=== PATIENT | male | born 1980 | race Caucasian/White ===

== ENCOUNTER 2023-02-09 08:24 | Inpatient (IN) | payer BC, SELFPAY ==
[2023-02-09] VITALS (16 sets, daily range): BP systolic 116–140; BP diastolic 73–93; PULSE 81–107; RESP 15–20; TEMP 36.8–37.3; O2SAT 88–98; BMI 30.8
--- NOTE | 2023-02-09 08:54 | USCV_ITS ---
JoseJersey Age: 42 Gender: M : 1980 Exam Date: 02/09/2023 09:14 Ordering Phys: Pao Brooks Technologist: [place] [facility] [place]: cramping,pain PROCEDURES: Venous duplex imaging was performed in only the right lower extremity. In addition, the posterior tibial and peroneal trunk were evaluated. On the right side, the common femoral, superficial femoral, profunda femoral, popliteal, posterior tibial, greater saphenous veins and the peroneal trunk were identified and interrogated in the standard fashion. FINDINGS: Normal 2-D Doppler and augmentation and compressibility throughout the lower extremity venous structures. Additional imaging through the proximal calf veins also reveals no thrombus. Limited evaluation of the greater saphenous vein is patent with no thrombus. CONCLUSIONS No DVT right lower extremity. Dr. Tiffany Huddleston DO (Electronically Signed) Final Date: 09 Feb 2023 12:03 S
--- NOTE | 2023-02-09 08:54 | USR_ITS ---
PROCEDURE INFORMATION: Exam: US Duplex Right Lower Extremity Arteries Or Arterial Bypass Grafts Exam date and time: 02/09/2023 9:22 AM Age: 42 years old Clinical indication: Pain; Leg, lower; Right TECHNIQUE: Imaging protocol: Right Real-time duplex scan of the arteries or arterial bypass grafts of the right lower extremity with 2-D dumont scale, color Doppler flow and spectral waveform analysis. Images documented and saved. COMPARISON: US soft tissue/extremity [id number] 05/17/2019 7:34 AM FINDINGS: Right common femoral artery: No visible plaque. Normal waveform. Peak velocity 49 cm/s. Right superficial femoral artery: No visible plaque. Normal waveform. Peak velocity 64 cm/s. Right popliteal artery: Occlusive thrombus throughout the popliteal artery. Right calf/foot arteries: Minimal detectable flow in the posterior tibial and dorsalis pedis arteries with markedly abnormal parvus tardus waveforms. Soft tissues: Unremarkable. Other findings: Right iliac arteries demonstrate normal waveforms and peak velocity of 72 cm/s. No visible plaque. US/[place] [id number] IMPRESSION: 1. Occlusion of the popliteal artery. 2. No sign of hemodynamically significant stenosis above the popliteal artery.
--- NOTE | 2023-02-09 08:55 | ED_ITS ---
HPI - Extremity Problem General: Chief complaint: Extremity Problem,Nontraumatic Stated complaint: right leg pain Time Seen by Provider: 02/09/23 08:28 Source: patient Mode of arrival: ambulatory Limitations: no limitations History of Present Illness: Patient is a nice 42-year-old male who presents to ED today for evaluation of pain in his right lower extremity. Patient states he has a longstanding history of intermittent muscle cramps in that leg normally affecting the dorsum of his foot and calf. He states normally he treats these at home conservatively with stretching. He states two days ago he had a cramp to his right lower leg that was worse in severity than previous cramps. He states he woke up the following day and felt like the right lower leg was sore. Pain seemed to be worse with ambulation. Patient initially thought it could be related to the cramp but states as the day progressed pain seemed to worsen and radiating proximally which concerned him. MD Complaint: extremity pain and other (muscle cramps) Onset (ago): day(s) Pain Consistency: intermittent Location: right and lower extremity Quality: other (cramping) Radiation: proximal Associated symptoms: Reports no associated symptoms; Deny chest pain, fever(s) or rash Context: recent travel Review of Systems Const: Denies: fever(s), chills, body aches, fatigue or malaise Card: Denies: chest pain Resp: Denies: dyspnea GI: Denies: abdominal pain Musc: Reports: extremity pain and muscle cramps; Denies: neck pain, back pain, extremity swelling, joint pain, joint swelling, joint redness, joint warmth, joint stiffness, limited range of motion or muscle weakness Skin/Breast: Denies: rash Neuro: Denies: headache(s), numbness in extremities, weakness in extremities, sensory changes or difficulty walking Physical Exam Const: COMMON NORMALS: no acute distress, average body habitus, patient oriented x3, no limitations, alert and well nourished GENERAL APPEARANCE: cooperative ORIENTATION/CONSCIOUSNESS: Yes awake, Yes oriented to person, Yes oriented to place and Yes oriented to time HENMT: COMMON NORMALS: normocephalic and atraumatic HEAD & SCALP: normal to inspection, normocephalic and atraumatic Resp: COMMON NORMALS: normal respiratory effort and clear to auscultation bilaterally AUSCULTATION: clear to auscultation bilaterally Cardio: COMMON NORMALS: regular rate and regular rhythm RATE: regular rate RHYTHM: regular rhythm GI: COMMON NORMALS: Normal to inspection, nondistended, normoactive bowel sounds present, Soft to palpation, non-tender and no masses PALPATION: Yes Soft to palpation Extremity: COMMON NORMALS: normal to inspection, full ROM, capillary refill n ormal, no joint enlargement, no clubbing, cyanosis or edema, no calf tenderness and no pedal edema GENERAL: Yes normal exam except as noted OTHER: pt maintains full ROM of all joints of R LE; I do not appreciate any obvious swelling anywhere to the extremity; no color/temp changes when compared to contralateral; I can easily feel DP/PT pulses on L LE however have difficulty finding them on the R; Doppler was used and I could faintly spanish moss picker his DP pulse but still couldn't confirm PT; sensation and cap refill normal; negative H tenisha's; no overlying skin changes/lesions appreciated Neuro: COMMON NORMALS: patient oriented x3 SENSORIUM/ORIENTATION: Yes alert, Yes oriented to person, Yes oriented to place and Yes oriented to time Course Consultations: Consultation #1: Dr. Bruce-CTA imaging and he will consult, recommends admit to hospitalist Consultation #2: Dr. Kraus-will accept admission Vital Signs: Vital signs: Vital Signs Temperature 98.2 F 02/09/23 08:31 Pulse Rate 103 H 02/09/23 10:34 Respiratory Rate 18 02/09/23 10:24 Blood Pressure 140/85 02/09/23 10:34 Pulse Oximetry 91 02/09/23 10:34 Oxygen Delivery Me thod Room Air 02/09/23 08:34 MDM - Extremity (Nontraumatic) Medical Decision Making Patient has occlusion of his popliteal artery. The limb is not cool/pale in comparison to the contralateral extremity. He does have some pain at rest. I spoke to hospitalist physician Dr. Bruce who recommended CTA imaging and admit to hospitalist and he will consult. He agreed with heparin bolus and heparin drip for now. I spoke to Dr. Kraus who will come see the patient for hospitalization. Case discussed with Dr. Staples who has followed along and agrees with care plan for patient. After patient was admitted to hospital service I got a call from Dr. Huddleston who was actively reading his CT angio study. She alerted me that patient has bilateral pulmonary emboli with right heart strain. I contacted Dr. Kraus and immediately relayed these results to him. ES Lab Data 02/09/23 09:39 02/09/23 09:39 Radiology Impressions Duplex Scan Lower Extremity Artery 02/09/23 08:54 IMPRESSION: 1. Occlusion of the popliteal artery. 2. No sign of hemodynamically significant stenosis above the popliteal artery. ADDENDUM: 02/09/23 1012 THIS REPORT CONTAINS FINDINGS THAT MAY BE CRITICAL TO PATIENT CARE. The findings were verbally communicated via telephone conference with Dr. Staples for ptJersey Thomas at 10:10 AM CDT on 02/09/2023. The findings were acknowledged and understood. Laboratory Results WBC 9.8 10^3/uL (4.0-10.0) 02/09/23 09:39 RBC 5.66 10^6/uL (4.1-5.3) H 02/09/23 09:39 Hgb 15.8 g/dL (11.7-16.6) 02/09/23 09:39 Hct 46.4 % (42.0-52.0) 02/09/23 09:39 MCV 82.0 fl (80-94) 02/09/23 09:39 MCH 27.9 pg (28.0-34.0) L 02/09/23 09:39 MCHC 34.1 g/dL (30.0-36.0) 02/09/23 09:39 RDW 12.8 % (12.1-15.1) 02/09/23 09:39 Plt Count 156 10^3/cmm (130-400) 02/09/23 09:39 MPV 10.6 fL (7.4-10.4) H 02/09/23 09:39 Neut % (Auto) 78.4 % 02/09/23 09:39 Lymph % (Auto) 13.3 % 02/09/23 09:39 [place] % (Auto) 6.6 % 02/09/23 09:39 Eos % (Auto) 0.8 % 02/09/23 09:39 Baso % (Auto) 0.4 % 02/09/23 09:39 Neut # (Auto) 7.64 10^3/uL (1.8-7.7) 02/09/23 09:39 Lymph # (Auto) 1.3 10^3/uL (0.8-4.8) 02/09/23 09:39 [place] # (Auto) 0.6 10^3/uL (0.2-0.9) 02/09/23 09:39 Eos # (Auto) 0.1 10^3/uL (0.0-0.8) 02/09/23 09:39 Baso # (Auto) 0.0 10^3/uL (0.0-0.1) 02/09/23 09:39 Nucleated RBC % (auto) 0 % 02/09/23 09:39 Nucleated RBCs # 0.0 /100WBC 02/09/23 09:39 ESR 10 mm/hr (0-10) 02/09/23 09:39 PT 13.80 SECONDS (12.1-14.9) 02/09/23 09:39 INR 1.03 (0.8-1.2) 02/09/23 09:39 APTT 25.4 SECONDS (23.9-36.7) 02/09/23 09:39 Sodium 134 mmol/L (136-145) L 02/09/23 09:39 Potassium 4.3 mmol/L (3.5-5.1) 02/09/23 09:39 Chloride 101 mmol/L (98-107) 02/09/23 09:39 Carbon Dioxide 24 mmol/L (22-29) 02/09/23 09:39 Anion Gap 13.3 (5-19) 02/09/23 09:39 BUN 18 mg/dL (6-20) 02/09/23 09:39 Creatinine 0.8 mg/dL (0.7-1.2) 02/09/23 09:39 GFR Calculation 105.0 mL/min (90-130) 02/09/23 09:39 Glucose 337 mg/dL (65-115) H 02/09/23 09:39 Calculated Osmolality 293 mOsm/kg (285-295) 02/09/23 09:39 Calcium 8.6 mg/dL (8.5-10.5) 02/09/23 09:39 Magnesium 2.1 mg/dL (1.7-2.3) 02/09/23 09:39 Total Bilirubin 0.8 mg/dL (0.15-1.2) 02/09/23 09:39 AST 10 U/L (0-40) 02/09/23 09:39 ALT 15 U/L (0-41) 02/09/23 09:39 Alkaline Phosphatase 88 U/L (40-130) 02/09/23 09:39 C-Reactive Protein 38.6 mg/L (0.0-4.9) H 02/09/23 09:39 Total Protein 7.1 g/dL (6.6-8.7) 02/09/23 09:39 Albumin 4.1 g/dL (3.5-5.2) 02/09/23 09:39 Globulin 3.0 g/dL (1.3-4.6) 02/09/23 09:39 Homocysteine 8.96 02/09/23 09:39 TSH 0.93 uIU/mL (0.27-4.20) 02/09/23 09:39 Discharge Plan Discharge Patient Disposition: Admitted As Inpatient Clinical Impression: Occlusion of right popliteal artery Condition: Stable Coding Level of Care Code ED Grounds Keeper for Roque Salmon
[2023-02-09 09:47] LABS: Basophils % 0.4 %; Eosinophils # 0.1 10^3/uL (0.0-0.8); Eosinophils % 0.8 %; Hematocrit 46.4 % (42.0-52.0); Hemoglobin 15.8 g/dL (11.7-16.6); Lymphocytes # 1.3 10^3/uL (0.8-4.8); Lymphocytes % 13.3 %; Mean Corpuscular HGB Conc 34.1 g/dL (30.0-36.0); Mean Corpuscular Hemoglobin 27.9 pg (28.0-34.0); Mean Platelet Volume 10.6 fL (7.4-10.4); Monocytes # 0.6 10^3/uL (0.2-0.9); Monocytes % 6.6 %; Neutrophils # 7.64 10^3/uL (1.8-7.7); Neutrophils % 78.4 %; Nucleated Red Blood Cells % 0 %; Platelet Count 156 10^3/cmm (130-400); Red Blood Count 5.66 10^6/uL (4.1-5.3); Red Cell Distribution Width 12.8 % (12.1-15.1); White Blood Count 9.8 10^3/uL (4.0-10.0)
[2023-02-09 10:04] LABS: Alanine Aminotransferase 15 U/L (0-41); Albumin Level 4.1 g/dL (3.5-5.2); Alkaline Phosphatase 88 U/L (40-130); Anion Gap 13.3 (5-19); Aspartate Amino Transferase 10 U/L (0-40); Blood Urea Nitrogen 18 mg/dL (6-20); Calcium 8.6 mg/dL (8.5-10.5); Carbon Dioxide 24 mmol/L (22-29); Chloride 101 mmol/L (98-107); Glucose 337 mg/dL (65-115); Magnesium 2.1 mg/dL (1.7-2.3); Osmolality Calculated 293 mOsm/kg (285-295); Potassium 4.3 mmol/L (3.5-5.1); Sodium 134 mmol/L (136-145); Total Bilirubin 0.8 mg/dL (0.15-1.2); Total Protein 7.1 g/dL (6.6-8.7)
[2023-02-09 10:22] LABS: INR 1.03 (0.8-1.2); Partial Thromboplastin Time 25.4 SECONDS (23.9-36.7)
[2023-02-09] MEDS: ondansetron 2 mg/ML SDV 2 mL 4 MG IVP ×2 (10:24→23:05)
[2023-02-09] MEDS: morphine 4 mg/mL SDV 1 mL IVP (10:24)
--- NOTE | 2023-02-09 10:28 | CT_ITS ---
WS: [id number] CT ANGIOGRAPHY OF THE ABDOMINAL AORTA WITH RUNOFF TO THE ANKLES HISTORY: R LE popliteal artery occlusion TECHNIQUE: Arterial injection is performed during imaging to evaluate the aorta and runoff vessels to the ankles. MIP and volume rendering imaging has also been performed. All images are reviewed. All C T scans at [facility] use at least one of these dose optimization techniques: automated exposu re control; mA and/or kV adjustment per patient size (includes targeted exams where dose is matched t o clinical indication); or iterative reconstruction. Contrast: Omnipaque 350; 100 mL IV. DLP: 1276.23 mGy.cm COMPARISON: None available. Bilateral pulmonary emboli. Largest embolic burden in the distal RIGHT main pulmonary artery with ext ension into the upper and lower lobes. There is also involvement of the RIGHT middle lobe pulmonary a rtery. Additional extensive thrombus in the LEFT lower lobe arterial system. RIGHT heart strain. RIGH T ventricle and atrium are enlarged. Tricuspid regurgitation into hepatic veins. Normal aorta. No aneurysm. Normal celiac axis. Mild atherosclerotic plaque in the proximal SMA. No oc clusions. RIGHT lower extremity arterial system: RIGHT common iliac artery through the internal and external an d femoral arteries is normal. There is acute thrombus with occlusion of the RIGHT deep profunda femor al artery. SFA well-opacified. There is complete occlusion of the popliteal artery. Very small vessel runoff to the ankle. There is thrombus, continuing throughout the peroneal artery with occlusion. Po sterior tibial artery is very small and may be occluded also. There is a tiny nonenhancing outpouching from the RIGHT popliteal artery extending towards the tibia measuring 8 mm. LEFT lower extremity arterial system: Common iliac artery, internal and external iliac arteries are p atent. SFA and deep profunda are patent. Normal popliteal artery. Three-vessel runoff to the ankle is improved as compared to the RIGHT. Beyond the mid tibia arteries are not opacified adequately. This is due to function of the injection. Normal size liver and spleen. Spleen is top normal at 13.0 cm. No adrenal mass. Normal pancreas and c ommon bile duct. No pancreatic duct dilatation. Focal scar with cortical thinning RIGHT kidney measur es 2.4 x 1.8 cm. This will need to be reevaluated for possible underlying renal cell neoplasm. There is mild increased soft tissue extending into the medullary portion of the kidney. LEFT kidney is nega tive. Very small caliber main RIGHT renal artery. There are 2 small renal arteries. Accessory renal a rtery on the LEFT also. No adenopathy or ascites. No GI tract obstruction. Stomach is well distended. Portal vein is well opa cified. The SMV is not well opacified as this is an arterial injection. No GI tract obstruction. No i schemic changes. No mass. Negative urinary bladder. CT/CT angio abd aorta runof [id number] IMPRESSION: 1. Extensive bilateral pulmonary emboli identified. 2. Moderate RIGHT heart strain. 3. Complete occlusion of the RIGHT popliteal artery. Thrombus or embolic disea se in the RIGHT popliteal artery extends into the peroneal artery. Very poor ru noff to the ankle via 3 vessels. 4. 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 5. Soft tissue occlusion RIGHT deep femoral profunda artery. 6. Very minimal atherosclerotic disease in the proximal SMA with no occlusion. 7. Cortical scar with increased soft tissue RIGHT kidney. Consider evaluation by ultrasound. Follow-up MRI renal mass protocol as patient's condition improv es. Small caliber renal arteries. There are 2 small caliber RIGHT renal arterie s. Notified YUMIKO Weiner at 02/09/2023 12:[address] Nayana robles.
[2023-02-09] MEDS: heparin 5,000 unit/mL INJ 1 mL 4000 UNIT IVP (10:30)
[2023-02-09] MEDS: heparin drip 25,000 UNIT/500 ML PREMIX 23.41 UNIT IV (10:35)
--- NOTE | 2023-02-09 10:40 | USCV_ITS ---
JoseJersey baugh Age: 42 Gender: M : 1980 Exam Date: 02/09/2023 11:05 Ordering Phys: Jt Kraus MD Technologist: CT [place] [facility] [place]ication: arterial thrombus- lower ext. BP: 102 / 86 HR: 99 Rhythm: Sinus Technical Quality: Adequate MEASUREMENTS (Male / Female) Normal Values 2D ECHO LV Diastolic Diameter PLAX 5.3 cm 4.2 - 5.9 / 3.9 - 5.3 cm LV Systolic Diameter PLAX 3.6 cm IVS Diastolic Thickness 0.7 cm 0.6 - 1.0 / 0.6 - 0.9 cm IVS Systolic Thickness 1.1 cm LVPW Diastolic Thickness 0.7 cm 0.6 - 1.0 / 0.6 - 0.9 cm LVPW Systolic Thickness 1.6 cm LVOT Diameter 2.2 cm LV Ejection Fraction 2D Teich 61.5 % LV Ejection Fraction MOD 2C 57.3 % LV Ejection Fraction 2C AL 56.3 % LA Diameter 4.2 cm Aorta at Sinotubular Diameter 2.6 cm IVC Diameter 1.5 cm M-MODE Aortic Annulus Diameter 3.2 cm LA Ao Ratio MM 1.3 MV E Point Septal Separation 1.2 cm DOPPLER AV Peak Velocity 155.0 cm/s LVOT Peak Velocity 108.0 cm/s AV Area Cont Eq vti 2.9 cm squared AV Area Cont Eq pk 2.7 cm squared MV Peak Velocity 80.0 cm/s MV Area PHT 3.9 cm squared Mitral E to A Ratio 0.9 MV E' Velocity 36.0 cm/s Mitral E to MV E' Ratio 6.7 Mitral E to LV E' Lateral Ratio 5.2 Mitral E to LV E' Septal Ratio 9.6 TR Peak Velocity 265.9 cm/s TR Peak Gradient 28.3 mmHg TR Mean Velocity 182.0 cm/s TR Mean Gradient 15.4 mmHg TR Velocity Time Integral 55.5 cm TV Peak E Velocity 71.0 cm/s Right Atrial Pressure 3.0 mmHg Pulmonary Artery Systolic Pressu 31.3 mmHg PV Peak Velocity 61.0 cm/s FINDINGS Left Ventricle Left ventricle is normal in size. LV systolic function is normal with EF 55 to 60%. No regional wall motion abnormalities are seen. Right Ventricle RV is dilated and moderately hypokinetic. Right Atrium Normal in size Left Atrium Normal in size Mitral Valve Structurally normal mitral valve. Trace mitral regurgitation. Aortic Valve Structurally normal aortic valve. No significant stenosis or regurgitation. Tricuspid Valve Mild tricuspid regurgitation. Insufficient TR jet to calculate RVSP Pulmonic Valve Not well visualized Pericardium Normal Aorta Normal in size IVC Appears to be normal CONCLUSIONS LV systolic function is normal with EF of 55 to 60%. RV is dilated and moderately hypokinetic Trace mitral regurgitation Mild tricuspid regurgitation No comparison studies are available José Schneider MD (Electronically Signed) Final Date: 09 Feb 2023 20:53 S
--- NOTE | 2023-02-09 10:46 | ECG_ITS ---
[facility] Test Date: 2023-02-09 Pat Name: Jersey Garcia Department: Room: Gender: Male Mica Inspector: : 1980 Requested By: Jt Land Order Number: [id number] Jesus MD: Sindi Osorio M.D. Measurements Intervals [place] Rate: 94 P: 37 [place]: 153 QRS: 112 QRSD: 91 T: 63 QT: 383 QTc: 481 Interpretive Statements SINUS RHYTHM INCOMPLETE RIGHT BUNDLE BRANCH BLOCK [90+ ms QRS DURATION, TERMINAL R IN V1/V2, 40+ ms S IN I/aVL/V4/V5/V6] No previous ECG available for comparison Electronically Signed On 02-10-2023 7:28:12 CDT by Sindi Osorio M.D. [id number]
[2023-02-09] MEDS: iohexol 350 mg/mL 500 mL Btl (per mL) IV (10:55)
[2023-02-09 11:36] LABS: Erythrocyte Sedimentation Rate 10 mm/hr (0-10)
[2023-02-09 11:38] LABS: C Reactive Protein 38.6 mg/L (0.0-4.9); Homocysteine 8.96; Thyroid Stimulating Hormone 0.93 uIU/mL (0.27-4.20)
--- NOTE | 2023-02-09 12:18 | USCV_ITS ---
Jersey Garcia Age: 42 Gender: M : 1980 Exam Date: 02/09/2023 13:48 Ordering Phys: Jt Kraus MD Technologist: Jaiden Gee [place] [facility] [place]ication: PE PROCEDURES: Venous duplex imaging was performed in only the left lower extremity. The following venous structures were evaluated: common femoral vein, profunda vein, proximal portion of the greater saphenous vein, superficial femoral vein, and the popliteal vein. In addition, the posterior tibial and peroneal trunk were evaluated. Serial compression, augmentation maneuvers, and spectral Doppler flow evaluation were performed. FINDINGS: Normal 2-D Doppler and augmentation and compressibility throughout the lower extremity venous structures. Additional imaging through the proximal calf veins also reveals no thrombus. Limited evaluation of the greater saphenous vein is patent with no thrombus. CONCLUSIONS No DVT left lower extremity. Dr. Tiffany Huddleston DO (Electronically Signed) Final Date: 09 Feb 2023 16:06 S
--- NOTE | 2023-02-09 12:56 | PM.CONSULT ---
Providers/Reason For Consult Consulting Physician/Specialty*: José Schneider MD/ Cardiology Reason for Consult*: Right leg/foot pain Requesting Physician: Pao Brooks Attending Physician: Dr Kraus Primary Care Provider: Sandoval Castillo DO History of Present Illness History of Present Illness Jersey Garcia is a 42 year old male presented to ER with pain in the right lower extremity. He had been having leg cramping for a couple of months but for the last 2 days episodes became worse. This morning it was worst pain mostly with movement and he decided to come to ER. Pulses were not palpable. Patient underwent doppler ultrasound that showed thrombus in the right popliteal artery. CTA confirmed the findings with very minimal runoff. He was started on heparin gtt. Review of Systems General: Reports: 10 or more systems reviewed and unremarkable except in HPI and below Const: Denies: fever(s) or chills Card: Reports: dyspnea on exertion; Denies: chest pain or swelling of feet/ankles Resp: Reports: dyspnea; Denies: productive cough or non-productive cough GI: Reports: nausea; Denies: abdominal pain, vomiting, hematemesis, hematochezia or melena Musc: Reports: extremity pain Medications/Allergies Home Medications Medication Instructions Recorded Confirmed Last Taken Type No Known Home Medications 02/09/23 02/09/23 Unknown History Allergies Allergy/AdvReac Type Severity Reaction Status Date / Time acetaminophen [From Vicodin] Allergy ADR-Itching Verified 02/09/23 11:49 hydrocodone [From Vicodin] Allergy ADR-Itching Verified 02/09/23 11:49 Current Medications Generic Name Dose Route Start Last Admin Trade Name Freq PRN Reason Stop Dose Admin Heparin Sodium/Sodium Chloride 25,000 unit in 500 mls @ 23.405 mls/hr 02/09/23 10:00 02/09/23 10:35 Heparin Drip IV 12 unit/kg/hr .[id number] CHUCKIE 23.41 mls/hr Administration 12 UNIT/KG/HR PFSH Acute PFSH: Medical History Diabetes mellitus 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 Surgical History History of appendectomy History of cholecystectomy Family History Other Hypertension Social History Smoking and tobacco status: current every day smoker smokeless tobacco Smokeless tobacco user: chewing tobacco Alcohol intake: never Vitals/I&O/Wt Last Vital Signs Temp 98.2 F 02/09/23 08:31 Pulse 96 02/09/23 12:00 Resp 18 02/09/23 10:24 BP 122/93 02/09/23 12:00 Pulse Ox 96 02/09/23 12:00 O2 Del Method Nasal Cannula 02/09/23 12:00 O2 Flow Rate 2 02/09/23 12:00 Weight last 48 hrs Weight 215 lb Physical Exam Const: COMMON NORMALS: no acute distress, patient oriented x3 and alert HENMT: HEAD & SCALP: normal to inspection Resp: COMMON NORMALS: normal respiratory effort Cardio: COMMON NORMALS: regular rate, regular rhythm and S1 normal heart sound present RATE: regular rate RHYTHM: regular rhythm HEART SOUNDS: S1 normal heart sound present Extremity: OTHER: Right foot has normal temperature. Pulses not palpable DP or PT Neuro: COMMON NORMALS: patient oriented x3 SENSORIUM/ORIENTATION: Yes alert Data 02/09/23 09:39 02/09/23 09:39 A&P Assessment and plan (1) Critical limb ischemia of right lower extremity: (2) Diabetes mellitus: (3) Pulmonary emboli: (4) Occlusion of right popliteal artery: Plan Patient has presented with critical limb ischemia with worsening leg pain. Now rest pain. Has thrombus noted on imaging in the right popliteal artery. Minimal flow seen below the knee. Continue heparin gtt. We will proceed with peripheral angiogram with possible intervention. Risks and benefits of the procedure have been discussed in detail. ECHO ordered. Has bilateral pulmonary emboli. Continue anticoagulation. Thank you for involving us with care of this patient. We will continue to follow. Please call with questions. Consult Attestations Medical Necessity Statement: Care expected to cross 2 midnights. Coding Level of Care Code Acute Code for [facility] Fwd Diagnoses Critical limb ischemia of right lower extremity I70.221 Diabetes mellitus E11.9 Pulmonary emboli I26.99 Occlusion of right popliteal artery I70.201
--- NOTE | 2023-02-09 13:24 | P.HP_ITS ---
Providers/Chief Complaint Admitting Physician: Jt Kraus MD Primary Care Provider: Sandoval Castillo DO Chief Complaint: right leg pain History of Present Illness Jersey Garcia is a 42 year old male presenting to the emergency department with complaints of some pain in his right lower extremity. He reports over the last 2 days he has been having some cramps in the area, worsening significantly last night with some ankle movement. He reports he has had cramps in his feet before, but nothing like this. He reports no significant calf pain usually with walking. However, last night he did have pain into his calf and his upper leg. He reports he had some nausea with the pain. He has had no chest discomfort. In retrospect, after repeat interview he reports he has a little bit of shortness of breath with exertion the last several days but not at rest, and he goes quickly away. No hemoptysis. No fever, recent COVID. No family history of clotting disorders. In the emergency department a right lower extremity popliteal artery thrombus was noted on ultrasound. Subsequently a CTA was ordered, which demonstrated bilateral pulmonary emboli, with right heart strain. Heparin drip was ordered, cardiology consulted. Review of Systems General: Reports: 10 or more systems reviewed and unremarkable except in HPI and below Const: Denies: fever(s) or chills Card: Reports: dyspnea on exertion; Denies: chest pain or swelling of feet/ankles Resp: Reports: dyspnea; Denies: productive cough or non-productive cough GI: Reports: nausea; Denies: abdominal pain, vomiting, hematemesis, hematochezia or melena Medications/Allergies Home Medications Medication Instructions Recorded Confirmed Last Taken Type No Known Home Medications 02/09/23 02/09/23 Unknown History Allergies Allergy/AdvReac Type Severity Reaction Status Date / Time acetaminophen [From Vicodin] Allergy ADR-Itching Verified 02/09/23 11:49 hydrocodone [From Vicodin] Allergy ADR-Itching Verified 02/09/23 11:49 PFSH Acute PFSH: Medical History (Updated 02/09/23 @ 13:35 by Jt Kraus MD) Diabetes mellitus 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 Surgical History (Updated 02/09/23 @ 13:27 by Jt Kraus MD) History of appendectomy History of cholecystectomy Family History (Updated 02/09/23 @ 13:27 by Jt Kraus MD) Other Hypertension Social History (Updated 02/09/23 @ 13:27 by Jt Kraus MD) Smoking and tobacco status: current every day smoker smokeless tobacco Smokeless tobacco user: chewing tobacco Alcohol intake: never Vitals/I&O/Wt Last Vital Signs Temp 98.2 F 02/09/23 08:31 Pulse 96 02/09/23 12:00 Resp 18 02/09/23 10:24 BP 122/93 02/09/23 12:00 Pulse Ox 96 02/09/23 12:00 O2 Del Method Nasal Cannula 02/09/23 12:00 O2 Flow Rate 2 02/09/23 12:00 Weight last 48 hrs Weight 97.522 kg Physical Exam Narrative: General exam is no apparent distress HEENT: Atraumatic and normocephalic. Pupils equally round. Oropharynx clear. Neck is supple no lymphadenopathy thyromegaly Cardiovascular regular in rhythm without murmur, no S3 or S4 Lungs clear no wheezing or crackles Abdomen soft nontender positive bowel sounds. No obvious organomegaly exams deferred Extremities no cyanosis or clubbing. Right lower extremity with absent dorsalis pedis and posterior tibial pulse. Cap refill approximately 2 seconds. Left is normal. Right side is cooler to the touch. No significant pain currently. Skin no rash Neuro no obvious focal deficits Data 02/09/23 09:39 02/09/23 09:39 Other Labs: PT and PTT are normal LFTs are normal CRP elevated at 39 Sedimentation rate 10 TSH 0.93 CTA of chest demonstrates extensive bilateral pulmonary emboli with moderate right heart strain, complete occlusion of right popliteal artery. Soft tissue occlusion of right deep femoral profunda artery, question scar right kidney. I reviewed this as well. Venous duplex right lower extremity demonstrates no DVT, left ordered Arterial duplex on right demonstrated occlusion of popliteal artery EKG which I reviewed demonstrates sinus rhythm, right axis deviation, incomplete right bundle A&P Assessment and plan (1) Occlusion of right popliteal artery: Unexpected finding in this young male. Extends to the peroneal., Suspicious for right popliteal artery aneurysm, occlusion of deep femoral profunda as well. Cannot completely rule out propagation of embolism to arterial side secondary to bilateral pulmonary emboli with right heart strain. Potential explanation would be enough pressure to open up a PFO. Cardiology consultation Heparin drip, with close measurement of PTTs Thrombotic work-up. See multiple studies ordered Pain control Hydration (2) Pulmonary emboli: Initiate heparin drip Perform venous duplex other side Check urinalysis to make sure no nephropathy/nephritic Oxygen as needed If remains stable over the next several days consider conversion to novel/newer anticoagulant (3) Diabetes mellitus: Initiate sliding scale insulin Consistent carb diet when diet initiated Check hemoglobin A1c Plan Abnormality of kidney, seen on CTA. Check renal ultrasound. Nicotine dependency. Counseled. Full code Heparin is initiated. Note patient has pulmonary emboli Attestations 2 Medical Necessity Statement*: Will need greater than 2 midnight stay for evaluation and treatment of bilateral pulmonary emboli with right heart strain, arterial thrombus Critical Care Time: The high probability of a clinically significant, sudden or life threatening deterioration of the patient's [vascular, pulmonary] system(s) required my full and direct attention, intervention and personal management. The critical care time is as shown. This time is in addition to time spent performing any reported procedures but includes the following: [x] Data and vital sign review and interpretation [x] Patient assessment, examination and intervention [x] Documentation [x] Medication orders and management Critical Care Time (min): 54 Coding Level of Care Code Critical Care >/= 30 minutes Critical care time (in minutes): 54 The high probability of a clinically significant, sudden or life threatening deterioration, as referenced in this documentation, required my full and direct attention, intervention and personal management. The critical care time shown is in addition to time spent performing any reported separately billable procedures and includes the following: [x] Data and vital sign review and interpretation [x ] Patient assessment, examination and intervention [x] Medication orders and management [x] Patient/Family updates as able [x] Care Coordination and Documen tation. Diagnoses Occlusion of right popliteal artery I70.201 Pulmonary emboli I26.99 Diabetes mellitus E11.9 Time Spent (min) 54
--- NOTE | 2023-02-09 13:33 | US_ITS ---
WS: [id number] RENAL ULTRASOUND HISTORY: abnormality on CTA COMPARISON: None available. TECHNIQUE: 2-D and color Doppler imaging of the kidney submitted. Right kidney: 11.5 cm x 5.2 cm x 5.8 cm. Cortex: 1.8 cm Normal echogenicity with no hydronephrosis or mass. Left kidney: 12.3 cm x 4.5 cm x 5.2 cm. Cortex: 1.8 cm Normal echogenicity with no hydronephrosis or mass. Aorta: Normal. Urinary Bladder: Normal distention. US/US renal BI* [id number] IMPRESSION: Normal renal ultrasound. Recently described abnormality in the RIGHT kidney by CT is not evident by ultr asound. Probably due to its small size. Recommend MRI evaluation on a nonemerge nt basis with and without contrast.
[2023-02-09 14:12] LABS: Estmated Average Glucose 249; Hemoglobin A1C 10.3 % (4.0-6.0)
--- NOTE | 2023-02-09 15:09 | XACV_ITS ---
Exam Room: [facility] Ht: 178 cm Wt: 98 kg BSA: 2.22 m2 Gender: Male : 1980 Exam Priority: Routine Procedure(s): Procedure Description: Diagnostic procedure Procedure Description: Peripheral Cath Diagnostic Procedure Procedure Description: Abdominal aortic angiography Procedure Description: Lower extremities' angiography Procedure Description: Peripheral vascular Intervention Procedure Description: PV Balloon Procedure Description: Miscellaneous Procedure Description: ACT Procedure Description: PV Thrombectomy Abdominal Diagnostic Findings Distal abdominal aorta: Patent. Lower Extremity Diagnostic Findings INDICATION: 42-year-old man has presented with critical limb ischemia with worsening leg pain for the last 2 weeks and severe pain for 2 days. Now pain with any movement. Has thrombus noted on imaging in the right popliteal artery. Minimal flow seen below the knee.. Right lower extremity findings: Right common iliac artery is patent. Right external iliac artery is patent. Right internal iliac artery is patent. Right common femoral artery is patent. Right profunda artery is thrombus in the midsegment. Right SFA is patent. Right popliteal artery has large thrombus burden. Weak collateral blood flow seen below the knee.. Left lower extremity findings: Left common iliac artery is patent. Left external iliac artery is patent. Left internal iliac artery is patent. Left common femoral artery is patent. Left profunda artery is proximally patent. Runoff was not performed for left lower extremity. Right Mid-longitudinal Popliteal Artery: Moderate 70% stenosis. Lower Extremity Interventional Findings Procedure detail: We obtained access in left common femoral artery. Peripheral angiogram with runoff showed thrombotic occlusion of right popliteal artery. We switched short sheath from left common femoral artery to 45 cm long sheath and was put in the right external iliac artery.We performed Mechanical thrombectomy with penumbra. Multiple runs were performed. Small quantity of thrombus was extracted out.This established limited flow into distal popliteal artery/below the knee vessel and revealed high thrombus burden in all vessels. Balloon angioplasty of popliteal artery using 5.0 x 40 mm balloon and 6.0 x 60 mm balloon also failed to establish inline brisk flow. This was likely secondary to poor outflow. After several attempts, we decided to treat patient with heparin and transfer for vascular surgery evaluation and treatment.. Right Mid-longitudinal Popliteal Artery: 100% stenosis treated with AB ARMADA 35 OTW [id number] and AB ARMADA 35 OTW [id number]. Conclusions Thrombotic occlusion of right popliteal artery s/p mechanical thrombectomy with penumbra device and balloon angioplasty. Very minimal flow established secondary to poor outflow and heavy thrombus burden throughout below the knee vessels. Collateral blood flow is weak however has been established providing minimal blood flow below the knee. Decision made to transfer patient to tertiary care center for vascular surgery evaluation. Sensation and movement is intact. No resting pain however movement induces significant lower extremity pain.. Right popliteal artery was treated with angioplasty and mechanical thrombectomy. Right Popliteal Artery was treated with two Balloon. Recommendations Continue anticoagulation with heparin gtt. Transfer to [facility] for vascular surgery evaluation. Pressures Phase:Rest AO : 156 / 83 ( 108 ) @ 5:45:00 PM 123 / 76 ( 92 ) @ 6:20:00 PM 138 / 87 ( 106 ) @ 6:25:00 PM 137 / 87 ( 107 ) @ 6:37:00 PM 136 / 79 ( 100 ) @ 6:40:00 PM Hemodynamic Data Phase:Rest AO : 156.0 / 83.0 ( 108.0 ) @ 5:45:00 PM 123.0 / 76.0 ( 92.0 ) @ 6:20:00 PM 138.0 / 87.0 ( 106.0 ) @ 6:25:00 PM 137.0 / 87.0 ( 107.0 ) @ 6:37:00 PM 136.0 / 79.0 ( 100.0 ) @ 6:40:00 PM Procedural Details Procedure Consent Obtained. Admit Source: Emergency department. Pre-Procedure Time Out. Identified patient by full name and date of as verbalized by the patient/guarantor. Does the consent match the physician's order: Yes. Accurate & Complete Informed Consent: Yes. Inpatient/Outpatient History & Physical on Chart: Yes. If H&P is completed, is and addenduem needed: Yes; If yes, is the addendum complete: Yes. Visualize and Verify Site with Patient/Guarantor: N/A. Relevant Radiology Images available: N/A. Pre-op teaching completed and patient verbalized understanding. The risks, benefits, and alternatives of sedation and/or procedure were discussed by physician. The patient agrees to continue. Procedure started. Veneer Taper Indications: Critical Limb Ischemia. Correct patient, site and procedure confirmed by cath team. Current diagnosis: Critical Limb Ischemia. PERRLA. Strong, equal hand cribbing setter bilaterally. Lungs clear x 5 lobes. IV Site on Arrival: 20 gauge in the right anticubital. IV Fluids: 0.9% NaCl at KVO. 0 mL infused prior to dental laboratory technician. Oxygen started at 2liters/min via nasal canula. Pre Procedural Pulses: right posterior tibial was Absent. Pre Procedural Pulses: right dorsalis pedis was Absent. right groin was prepped with chloroprep then draped in the usual sterile fashion. left groin was prepped with chloroprep then draped in the usual sterile fashion. Baseline sample Acquired. HR: 104 BPM. Physician notified. Physician arrived. Physician scrubbed in. Time out performed with cath team. Lidocaine 1% infiltrated to the left groin. Arterial access obtained with micropuncture set. ACT drawn. Results 130 seconds. Therapeutic limits - pre-heparin administration 90-150 seconds and monitoring heparin during a vascular procedure >250 seconds. A 5Fr UF catheter in over wire. Abdominal aortogram performed in GUERRA @ 10 mL/sec for a total of 30 mL. Glidewire inserted. 6Fr short sheath exchanged for 7 Fr 45 cm Flexor sheath. Seeker inserted over the glidewire. Seeker catheter out over wire. Lightning 7 aspiration catheter inserted. Glidewire out. Mechanical thrombectomy performed of R popliteal. Glidewire inserted. Lightning 7 catheter removed over Glidewire. Right superficial femoral selected and arteriogram with runoff performed @ 10 mL/sec for a total of 30 mL. Lightning 7 catheter in over Glidewire. Glidewire removed. Mechanical thrombectomy performed of R popliteal. Glidewire inserted. Lightning 7 catheter removed over Glidewire. Right superficial femoral selected and arteriogram performed. Balloon inserted over the wire to the popliteal. Inflation number : 1 A AB ARMADA 35 OTW [id number] was prepped and advanced across the Popliteal, Right , then inflated to 8 MALKA for 1:00 seconds. Inflation number: 2 The AB ARMADA 35 OTW [id number] was reinflated across the Popliteal, Right, to 4 MALKA for 0:30 seconds. Balloon out over wire. Post intervention angiography performed to check result. Lightning 7 catheter inserted over Glidewire. Glidewire removed. Mechanical thrombectomy performed to R Popliteal. Glidewire inserted. Lightning 7 catheter removed over wire. Balloon inserted over the wire to the popliteal. Inflation number: 3 The AB ARMADA 35 OTW [id number] was reinflated across the Popliteal, Right, to 8 MALKA for 0:30 seconds. ACT drawn. Results high. No heparin given. Inflation number: 4 The AB ARMADA 35 OTW [id number] was reinflated across the Popliteal, Right, to 8 MALKA for 0:20 seconds. Inflation number: 5 The AB ARMADA 35 OTW [id number] was reinflated across the Popliteal, Right, to 4 MALKA for 0:21 seconds. Balloon out over wire. Post intervention angiography performed to check result. Lightning 7 aspiration catheter in over Glidewire. Glidewire removed. Mechanical thrombectomy performed of R popliteal. Glidewire inserted. Lightning 7 catheter removed over Glidewire. Balloon inserted over the wire to the popliteal. Inflation number : 6 A AB ARMADA 35 OTW [id number] was prepped and advanced across the Popliteal, Right , then inflated to 6 MALKA for 0:25 seconds. Inflation number: 7 The AB ARMADA 35 OTW [id number] was reinflated across the Popliteal, Right, to 6 MALKA for 0:15 seconds. Inflation number: 8 The AB ARMADA 35 OTW [id number] was reinflated across the Popliteal, Right, to 4 MALKA for 0:15 seconds. Balloon and wire out. Post intervention angiography performed to check result. 7Fr 45 cm Flexor Sheath exchanged for 7 Fr short sheath. A Left femoral angiogram was performed to determine safe placement of closure device. ACT drawn. Results 182 seconds. Therapeutic limits - pre-heparin administration 90-150 seconds and monitoring heparin during a vascular procedure >250 seconds. Sheath upsized to a 7 Fr. A Suture was successful obtaining hemostatsis at the Left Femoral artery insertion site. Sheath(s) sutured into position with 2-0 silk and sterile 4x4's and Op-site applied over the site. No oozing or signs and symptoms of hematoma noted. Post Procedure: Pulses reassessed and unchanged. PERRLA. Strong, equal hand cribbing setter bilaterally. No VTE prophylaxis required. ACT drawn. Results 213 seconds. Therapeutic limits - pre-heparin administration 90-150 seconds and monitoring heparin during a vascular procedure >250 seconds. Total IV fluids: 100 mL. Post-op diagnosis: Totally Occluded Popliteal Artery. Complications: none. Estimated blood loss 350mL. Responsiveness - Normal response to verbal stimuli; alert and oriented, PERRLA. Airway - Unaffected, no intervention required; spontaneous ventilation. Circulation: W/N/L, pulses unchanged. Nausea/Vomiting: No. Procedure completed. Patient transferred by bed to ICU. Vital chart was stopped. Procedure started. Access Site Site: Left Femoral artery Sheath Size: 6 Fr Hemostasis Method: Suture Hemostasis Success: Successful Procedure Medications Start: 4:44 PM Stop: 4:44 PM Medication: Heparin Amount: 4000 units Route: I.V. Start: 4:35 PM Stop: 4:35 PM Medication: Versed Amount: 1 mg Route: I.V. Start: 4:35 PM Stop: 4:35 PM Medication: Fentanyl Amount: 50 mcg Route: I.V. Start: 4:54 PM Stop: 4:54 PM Medication: Heparin Amount: 1000 units Route: I.V. Start: 5:03 PM Stop: 5:03 PM Medication: Fentanyl Amount: 25 mcg Route: I.V. Start: 5:03 PM Stop: 5:03 PM Medication: Versed Amount: 1 mg Route: I.V. Start: 5:10 PM Stop: 5:10 PM Medication: Heparin Amount: 1000 units Route: I.V. Start: 5:54 PM Stop: 5:54 PM Medication: Heparin Amount: 3000 units Route: I.V. I, the attending physician, have reviewed and verified all procedure medications. Yes, all medications given per verbal order History/Risk Factors Hypertension: No Dyslipidemia: No Peripheral Arterial Disease (PAD): No Myocardial Infarction (NH): No Obesity: No Renal Disease: No Tobacco Use: Current/Recent(w/in 1 year) Prior Interventions PCI: No CABG: No Valve Surgery: No Report Signatures Finalized by José Schneider MD on 02/12/2023 10:31 PM
[2023-02-09 16:17] LABS: Bilirubin Urine Neg (Negative); Blood Urine Neg (Negative); Glucose Urine UA 4+ (Normal); Ketones Urine 2+ (Negative); Nitrate Urine Negative (Negative); Protein Urine Neg (Negative); Urine Appearance Clear (CLEAR); Urine Color Yellow (Yellow); pH Urine 5 (5-7)
[2023-02-09 16:18] LABS: Leukocyte Esterase Urine Negative (Negative); Urobilinogen Urine Neg (Negative)
[2023-02-09 16:19] LABS: Add Urine Culture? No; Bacteria Urine TRACE /hpf; Mucus Urine TRACE /hpf; RBC Urine 0-4 /hpf (0-2); Squamous Epithelial Cell Urine 0-4 /hpf (0-5); WBC Urine 0-4 /hpf (0-5)
--- NOTE | 2023-02-09 16:30 | W.PM.OPSUD ---
Surgery/Procedure H&P Update DATE OF PROCEDURE: February 09, 2023 DATE H&P PERFORMED: 02/09/23 H&P UPDATE INFORMATION: I have reviewed H&P completed within last 30 days, I have examined patient prior to procedure and No changes to prior documentation PREOP DIAGNOSIS: Critical limb ischemia PRIMARY INDICATION FOR PROCEDURE: Critical limb ischemia PLANNED PROCEDURE: Peripheral angiogram with possible intervention PATIENT REASSESSED PRIOR TO SEDATION, WITH NO CHANGE NOTED: Yes PHYSICAL EXAM: alert, oriented x 3, clear to auscultation bilaterally and regular rate & rhythm AIRWAY EVAL/ANESTHESIA PLAN: normal airway, ASA III, Local Anesthesia, Risks, benefits & alternatives of sedation and/or procedure discussed and Patient agrees to continue as planned
[2023-02-09] MEDS: sodium chloride 0.9% 1,000 ML 100 ML IV (18:38)
[2023-02-09] MEDS: insulin lispro 100 unit/1 mL SUBCUT ×2 (18:45→20:18)
[2023-02-09 19:06] LABS: Glucose Point of Care 227 mg/dL (70-110)
--- NOTE | 2023-02-09 19:07 | PC.NURSE ---
Patient arrived to unit via bed, VSS with intermittent low o2 levels then placed on supplemental oxygen. Left fem site dry, clean and intact with pulse and pressure bag in place. Patient returned with Hep gtt that was shown titrated at 23ml/hr and restarted with new PTT drawn. Patient resting comfortably and educated with no movement and strict bed rest with left leg straight and again educated to keep in place. Faint pulse palpated to right foot and strong pulse to left foot. No needs at this time, room clean and clutter free with call light in place and patient educated environmental protection specialist light and tv controls.
[2023-02-09 19:13] LABS: Partial Thromboplastin Time 194.1 SECONDS (23.9-36.7)
[2023-02-09] MEDS: morphine 4 mg/mL SDV 1 mL 2 MG IVP (19:59)
[2023-02-09 20:14] LABS: Glucose Point of Care 212 mg/dL (70-110)
--- NOTE | 2023-02-09 20:15 | PC.NURSE ---
Physician Communication Sheath remaining in patient's left femoral artery. No doctor's order to keep in place nor remove. Dr. Schneider contacted; order received to leave sheath in place. Dressing dry and intact, no drainage or hematoma noted.
--- NOTE | 2023-02-09 20:29 | PM.MISC ---
Miscellaneous Note Purpose of Documentation: Brief procedure note Note: Procedure: Peripheral angiogram/ Mechanical Thrombectomy/Balloon angioplasty of distal SFA/popliteal Arteries. INDICATION: Critical limb ischemia. Patient having on and off Right lower extremity pain for several weeks however worsened in the last 2 days.Initially was only with exertion. Now happening at rest. Right lower extremity doppler and CTA show thrombosis of the right popliteal artery with minimal flow below the knee. Also has bilateral pulmonary embolism. Procedure detail:We obtained access in left common femoral artery. Peripheral angiogram with runoff showed thrombotic occlusion of right popliteal artery.Above the knee vessels were Patent. Right profunda artery also has thrombotic occlusion in mid segment.Minimal collateral blood supply was noted supplying blood below the knee. We performed Mechanical thrombectomy with penumbra. Multiple runs were performed. Small quantity of thrombus was extracted out.This established limited flow into distal popliteal artery/below the knee vessel and revealed high thrombus burden in all vessels. Balloon angioplasty of popliteal artery also referred to establish inline brisk flow. This was likely secondary to poor outflow. PLAN: Continue heparin. Will recommend transfer to tertiary care center for vascular surgery evaluation. No vascular surgery back up available. Significant discomfort with movement of the leg. Transfer to ICU. Keep the sheath in place.
[2023-02-09 22:33] LABS: Partial Thromboplastin Time 25.1 SECONDS (23.9-36.7)
--- NOTE | 2023-02-09 22:55 | PC.NURSE ---
Heparin Drip Around 1918, Patient's ptt came back critical at 194.2. Dr. Reddy contacted; order received to hold heparin drip for 3 hours and recheck ptt. Heparin drip stopped. At 2214, patient's ptt resulted at 25.1. Dr. Reddy on unit; order received to restart heparin drip at previous rate without delivering a bolus. See MAR for medication administration.
--- NOTE | 2023-02-09 23:29 | PC.NURSE ---
Addendum entered by Ava Barker RN 02/09/23 23:32: All patient belongings with patient at time of transfer Original Note: Transfer Patient accepted at [facility] in [place], [place], room CICU-8. Air evac flight accepted. Update on transfer status provided to patient and patient's . Oj De Guzman RN at [facility] received patient report at 2256 and patient transferred to flight crew care at 2326. Patient's and receiving nurse aware of expected time of arrival.
--- NOTE | 2023-02-10 08:49 | P.TS_ITS ---
Transfer Summary Providers Date of Admission: 02/09/23 16:01 Date of Discharge/Transfer: 02/10/23 Attending Provider at Admission: Jt Kraus MD Attending Provider at Transfer: Jt Kraus MD Primary Care Provider: Sandoval Castillo DO Transfer Plans: Anticipated date of transfer: 02/10/23 . Diagnoses at Discharge Discharge Diagnosis (1) Critical limb ischemia of right lower extremity: Status: Acute (2) Diabetes mellitus: Status: Acute (3) Pulmonary emboli: Status: Acute (4) Occlusion of right popliteal artery: Status: Acute Reason for Visit Reason for Visit right leg pain Hospital Course Hospital Course Jersey is a 42-year-old white male who presented to the emergency department complaining of right leg pain. He was found to have an ischemic limb, with clot in his popliteal artery. On evaluation of this with CTA, following ultrasound he was found to have bilateral pulmonary emboli with right heart strain. Echocardiogram confirmed some right heart dysfunction. Ejection fraction was intact. Cardiology evaluated patient, and took him for thrombectomy. Clot was more extensive, then predicted on CTA. Despite intervention, there was still high thrombus burden in all vessels and recommendation was made to transfer to a tertiary care hospital. Transfer to [facility], was made. Multiple clotting studies were ordered prior to the patient transferring, to work-up potential thrombotic disorder. CTA concern for renal abnormality was present as well right kidney. Renal ultrasound was not able to visualize this. Could consider revisualization as an outpatient with MRI dedicated study. Physical Exam Narrative: See exam done just hours previously earlier in the day TS Data Studies Completed and Pending Pending at discharge Category Date Time Status [employer] request for service Stat Exams 02/09/23 15:09 Ordered MARIANN Screen w/ Reflex Routine Lab 02/09/23 09:39 Received Anti-Cariolipin IgA AB Routine Lab 02/09/23 09:39 Received Antithrombin III Activity Routine Lab 02/09/23 14:23 Received Beta 2 Glycoprotein I IGA AB Routine Lab 02/09/23 09:39 Received Lupus Inhibitor Panel Anticoag Routine Lab 02/09/23 09:39 Received PROTEIN C, ACTIVITY Routine Lab 02/09/23 14:23 Received PROTEIN S, ACTIVITY Routine Lab 02/09/23 14:23 Received Labs from last 24 hours 02/09/23 02/09/23 02/09/23 22:08 20:09 18:43 WBC RBC Hgb Hct MCV MCH MCHC RDW Plt Count MPV Neut % (Auto) Lymph % (Auto) [facility] [place] % (Auto) Eos % (Auto) Baso % (Auto) Neut # (Auto) Lymph # (Auto) [facility] # (Auto) Eos # (Auto) Baso # (Auto) Nucleated RBC % (auto) Nucleated RBCs # ESR PT INR APTT 25.1 D Lupus Anticoagulant LA PTT Screen DRVVT Screen Seconds Prot C Funct Activity Protein S Activity Antithrombin III Activ Sodium Potassium Chloride Carbon Dioxide Anion Gap BUN Creatinine GFR Calculation Glucose POC Glucose 212 H 227 H Estimat Average Glucose Hemoglobin A1c Calculated Osmolality Calcium Magnesium Total Bilirubin AST ALT Alkaline Phosphatase C-Reactive Protein Total Protein Albumin Globulin Homocysteine TSH Urine Color Urine Appearance Urine pH Ur Specific [place] Urine Protein Urine Glucose (UA) Urine Ketones Urine Blood Urine Nitrate Urine Bilirubin Urine Urobilinogen Ur Leukocyte Esterase Urine RBC Urine WBC Ur Squamous Epith Cells Amorphous Sediment Urine Bacteria Urine Mucus MARIANN Screen Beta-2 GPI IgA Ab Anti-Cardiolip IgG,A,M 02/09/23 02/09/23 02/09/23 18:26 15:25 14:23 WBC RBC Hgb Hct MCV MCH MCHC RDW Plt Count MPV Neut % (Auto) Lymph % (Auto) [facility] % (Auto) Eos % (Auto) Baso % (Auto) Neut # (Auto) Lymph # (Auto) [facility] # (Auto) Eos # (Auto) Baso # (Auto) Nucleated RBC % (auto) Nucleated RBCs # ESR PT INR APTT 194.1 H* D Lupus Anticoagulant LA PTT Screen DRVVT Screen Seconds Prot C Funct Activity Protein S Activity Pending Antithrombin III Activ Sodium Potassium Chloride Carbon Dioxide Anion Gap BUN Creatinine GFR Calculation Glucose POC Glucose Estimat Average Glucose Hemoglobin A1c Calculated Osmolality Calcium Magnesium Total Bilirubin AST ALT Alkaline Phosphatase C-Reactive Protein Total Protein Albumin Globulin Homocysteine TSH Urine Color Yellow Urine Appearance Clear Urine pH 5 Ur Specific [place] 1.020 Urine Protein Neg Urine Glucose (UA) 4+ H Urine Ketones 2+ H Urine Blood Neg Urine Nitrate Negative Urine Bilirubin Neg Urine Urobilinogen Neg Ur Leukocyte Esterase Negative Urine RBC 0-4 H Urine WBC 0-4 H Ur Squamous Epith Cells 0-4 H Amorphous Sediment Not Reportable Urine Bacteria Trace Urine Mucus Trace MARIANN Screen Beta-2 GPI IgA Ab Anti-Cardiolip IgG,A,M 02/09/23 02/09/23 02/09/23 14:23 14:23 09:39 WBC RBC Hgb Hct MCV MCH MCHC RDW Plt Count MPV Neut % (Auto) Lymph % (Auto) [facility] % (Auto) Eos % (Auto) Baso % (Auto) Neut # (Auto) Lymph # (Auto) [facility] # (Auto) Eos # (Auto) Baso # (Auto) Nucleated RBC % (auto) Nucleated RBCs # ESR PT INR APTT Lupus Anticoagulant LA PTT Screen DRVVT Screen Seconds Prot C Funct Activity Pending Protein S Activity Antithrombin III Activ Pending Sodium Potassium Chloride Carbon Dioxide Anion Gap BUN Creatinine GFR Calculation Glucose POC Glucose Estimat Average Glucose 249 Hemoglobin A1c 10.3 H Calculated Osmolality Calcium Magnesium Total Bilirubin AST ALT Alkaline Phosphatase C-Reactive Protein Total Protein Albumin Globulin Homocysteine TSH Urine Color Urine Appearance Urine pH Ur Specific [place] Urine Protein Urine Glucose (UA) Urine Ketones Urine Blood Urine Nitrate Urine Bilirubin Urine Urobilinogen Ur Leukocyte Esterase Urine RBC Urine WBC Ur Squamous Epith Cells Amorphous Sediment Urine Bacteria Urine Mucus MARIANN Screen Beta-2 GPI IgA Ab Anti-Cardiolip IgG,A,M 02/09/23 02/09/23 02/09/23 09:39 09:39 09:39 WBC RBC Hgb Hct MCV MCH MCHC RDW Plt Count MPV Neut % (Auto) Lymph % (Auto) [facility] % (Auto) Eos % (Auto) Baso % (Auto) Neut # (Auto) Lymph # (Auto) [facility] # (Auto) Eos # (Auto) Baso # (Auto) Nucleated RBC % (auto) Nucleated RBCs # ESR 10 PT INR APTT Lupus Anticoagulant LA PTT Screen DRVVT Screen Seconds Prot C Funct Activity Protein S Activity Antithrombin III Activ Sodium Potassium Chloride Carbon Dioxide Anion Gap BUN Creatinine GFR Calculation Glucose POC Glucose Estimat Average Glucose Hemoglobin A1c Calculated Osmolality Calcium Magnesium Total Bilirubin AST ALT Alkaline Phosphatase C-Reactive Protein 38.6 H Total Protein Albumin Globulin Homocysteine 8.96 TSH 0.93 Urine Color Urine Appearance Urine pH Ur Specific [place] Urine Protein Urine Glucose (UA) Urine Ketones Urine Blood Urine Nitrate Urine Bilirubin Urine Urobilinogen Ur Leukocyte Esterase Urine RBC Urine WBC Ur Squamous Epith Cells Amorphous Sediment Urine Bacteria Urine Mucus MARIANN Screen Beta-2 GPI IgA Ab Anti-Cardiolip IgG,A,M Pending 02/09/23 02/09/23 02/09/23 09:39 09:39 09:39 WBC RBC Hgb Hct MCV MCH MCHC RDW Plt Count MPV Neut % (Auto) Lymph % (Auto) [facility] % (Auto) Eos % (Auto) Baso % (Auto) Neut # (Auto) Lymph # (Auto) [facility] # (Auto) Eos # (Auto) Baso # (Auto) Nucleated RBC % (auto) Nucleated RBCs # ESR PT 13.80 INR 1.03 APTT 25.4 Lupus Anticoagulant Pending LA PTT Screen Pending DRVVT Screen Seconds Pending Prot C Funct Activity Protein S Activity Antithrombin III Activ Sodium Potassium Chloride Carbon Dioxide Anion Gap BUN Creatinine GFR Calculation Glucose POC Glucose Estimat Average Glucose Hemoglobin A1c Calculated Osmolality Calcium Magnesium Total Bilirubin AST ALT Alkaline Phosphatase C-Reactive Protein Total Protein Albumin Globulin Homocysteine TSH Urine Color Urine Appearance Urine pH Ur Specific [place] Urine Protein Urine Glucose (UA) Urine Ketones Urine Blood Urine Nitrate Urine Bilirubin Urine Urobilinogen Ur Leukocyte Esterase Urine RBC Urine WBC Ur Squamous Epith Cells Amorphous Sediment Urine Bacteria Urine Mucus MARIANN Screen Pending Beta-2 GPI IgA Ab Pending Anti-Cardiolip IgG,A,M 02/09/23 02/09/23 09:39 09:39 WBC 9.8 RBC 5.66 H Hgb 15.8 Hct 46.4 MCV 82.0 MCH 27.9 L MCHC 34.1 RDW 12.8 Plt Count 156 MPV 10.6 H Neut % (Auto) 78.4 Lymph % (Auto) 13.3 [facility] % (Auto) 6.6 Eos % (Auto) 0.8 Baso % (Auto) 0.4 Neut # (Auto) 7.64 Lymph # (Auto) 1.3 [facility] # (Auto) 0.6 Eos # (Auto) 0.1 Baso # (Auto) 0.0 Nucleated RBC % (auto) 0 Nucleated RBCs # 0.0 ESR PT INR APTT Lupus Anticoagulant LA PTT Screen DRVVT Screen Seconds Prot C Funct Activity Protein S Activity Antithrombin III Activ Sodium 134 L Potassium 4.3 Chloride 101 Carbon Dioxide 24 Anion Gap 13.3 BUN 18 Creatinine 0.8 GFR Calculation 105.0 Glucose 337 H POC Glucose Estimat Average Glucose Hemoglobin A1c Calculated Osmolality 293 Calcium 8.6 Magnesium 2.1 Total Bilirubin 0.8 AST 10 ALT 15 Alkaline Phosphatase 88 C-Reactive Protein Total Protein 7.1 Albumin 4.1 Globulin 3.0 Homocysteine TSH Urine Color Urine Appearance Urine pH Ur Specific [place] Urine Protein Urine Glucose (UA) Urine Ketones Urine Blood Urine Nitrate Urine Bilirubin Urine Urobilinogen Ur Leukocyte Esterase Urine RBC Urine WBC Ur Squamous Epith Cells Amorphous Sediment Urine Bacteria Urine Mucus MARIANN Screen Beta-2 GPI IgA Ab Anti-Cardiolip IgG,A,M Completed Studies During Hospitalization Category Date Time Status CT angio abd aorta runof [id number] Stat Cat Scan 02/09/23 10:28 [place] [id number] Stat Ultrasound 02/09/23 12:18 Completed CV. echo complete* [id number] Routine Ultrasound 02/09/23 10:40 Completed US arterial duplex lower extremity RT [CV arterial Ultrasound 02/09/23 08:54 [place] [id number]] Stat US renal BI* [id number] Routine Ultrasound 02/09/23 13:33 Completed US venous duplex lower extremity RT [CV venous duplex Ultrasound 02/09/23 08:54 [place] [id number]] Stat Laboratory Last Values WBC 9.8 10^3/uL (4.0-10.0) 02/09/23 09:39 RBC 5.66 10^6/uL (4.1-5.3) H 02/09/23 09:39 Hgb 15.8 g/dL (11.7-16.6) 02/09/23 09:39 Hct 46.4 % (42.0-52.0) 02/09/23 09:39 MCV 82.0 fl (80-94) 02/09/23 09:39 MCH 27.9 pg (28.0-34.0) L 02/09/23 09:39 MCHC 34.1 g/dL (30.0-36.0) 02/09/23 09:39 RDW 12.8 % (12.1-15.1) 02/09/23 09:39 Plt Count 156 10^3/cmm (130-400) 02/09/23 09:39 MPV 10.6 fL (7.4-10.4) H 02/09/23 09:39 Neut % (Auto) 78.4 % 02/09/23 09:39 Lymph % (Auto) 13.3 % 02/09/23 09:39 [facility] [place] [facility] % (Auto) 6.6 % 02/09/23 09:39 Eos % (Auto) 0.8 % 02/09/23 09:39 Baso % (Auto) 0.4 % 02/09/23 09:39 Neut # (Auto) 7.64 10^3/uL (1.8-7.7) 02/09/23 09:39 Lymph # (Auto) 1.3 10^3/uL (0.8-4.8) 02/09/23 09:39 [facility] # (Auto) 0.6 10^3/uL (0.2-0.9) 02/09/23 09:39 Eos # (Auto) 0.1 10^3/uL (0.0-0.8) 02/09/23 09:39 Baso # (Auto) 0.0 10^3/uL (0.0-0.1) 02/09/23 09:39 Nucleated RBC % (auto) 0 % 02/09/23 09:39 Nucleated RBCs # 0.0 /100WBC 02/09/23 09:39 ESR 10 mm/hr (0-10) 02/09/23 09:39 PT 13.80 SECONDS (12.1-14.9) 02/09/23 09:39 INR 1.03 (0.8-1.2) 02/09/23 09:39 APTT 25.1 SECONDS (23.9-36.7) D 02/09/23 22:08 Sodium 134 mmol/L (136-145) L 02/09/23 09:39 Potassium 4.3 mmol/L (3.5-5.1) 02/09/23 09:39 Chloride 101 mmol/L (98-107) 02/09/23 09:39 Carbon Dioxide 24 mmol/L (22-29) 02/09/23 09:39 Anion Gap 13.3 (5-19) 02/09/23 09:39 BUN 18 mg/dL (6-20) 02/09/23 09:39 Creatinine 0.8 mg/dL (0.7-1.2) 02/09/23 09:39 GFR Calculation 105.0 mL/min (90-130) 02/09/23 09:39 Glucose 337 mg/dL (65-115) H 02/09/23 09:39 POC Glucose 212 mg/dL (70-110) H 02/09/23 20:09 Estimat Average Glucose 249 02/09/23 09:39 Hemoglobin A1c 10.3 % (4.0-6.0) H 02/09/23 09:39 Calculated Osmolality 293 mOsm/kg (285-295) 02/09/23 09:39 Calcium 8.6 mg/dL (8.5-10.5) 02/09/23 09:39 Magnesium 2.1 mg/dL (1.7-2.3) 02/09/23 09:39 Total Bilirubin 0.8 mg/dL (0.15-1.2) 02/09/23 09:39 AST 10 U/L (0-40) 02/09/23 09:39 ALT 15 U/L (0-41) 02/09/23 09:39 Alkaline Phosphatase 88 U/L (40-130) 02/09/23 09:39 C-Reactive Protein 38.6 mg/L (0.0-4.9) H 02/09/23 09:39 Total Protein 7.1 g/dL (6.6-8.7) 02/09/23 09:39 Albumin 4.1 g/dL (3.5-5.2) 02/09/23 09:39 Globulin 3.0 g/dL (1.3-4.6) 02/09/23 09:39 Homocysteine 8.96 02/09/23 09:39 TSH 0.93 uIU/mL (0.27-4.20) 02/09/23 09:39 Urine Color Yellow (Yellow) 02/09/23 15:25 Urine Appearance Clear (CLEAR) 02/09/23 15:25 Urine pH 5 (5-7) 02/09/23 15:25 Ur Specific [place] 1.020 (1.005-1.030) 02/09/23 15:25 Urine Protein Neg (Negative) 02/09/23 15:25 Urine Glucose (UA) 4+ (Normal) H 02/09/23 15:25 Urine Ketones 2+ (Negative) H 02/09/23 15:25 Urine Blood Neg (Negative) 02/09/23 15:25 Urine Nitrate Negative (Negative) 02/09/23 15:25 Urine Bilirubin Neg (Negative) 02/09/23 15:25 Urine Urobilinogen Neg mg/dL (Negative) 02/09/23 15:25 Ur Leukocyte Esterase Negative (Negative) 02/09/23 15:25 Urine RBC 0-4 /hpf (0-2) H 02/09/23 15:25 Urine WBC 0-4 /hpf (0-5) H 02/09/23 15:25 Ur Squamous Epith Cells 0-4 /hpf (0-5) H 02/09/23 15:25 Amorphous Sediment Not Reportable 02/09/23 15:25 Urine Bacteria Trace /hpf (NONE) 02/09/23 15:25 Urine Mucus Trace /hpf 02/09/23 15:25 Radiology Impressions Duplex Scan Lower Extremity Artery 02/09/23 08:54 IMPRESSION: 1. Occlusion of the popliteal artery. 2. No sign of hemodynamically significant stenosis above the popliteal artery. ADDENDUM: 02/09/23 1012 THIS REPORT CONTAINS FINDINGS THAT MAY BE CRITICAL TO PATIENT CARE. The findings were verbally communicated via telephone conference with Dr. Staples for pt. Jersey Garcia at 10:10 AM CDT on 02/09/2023. The findings were acknowledged and understood. Aorta w/Runoff CTA 02/09/23 10:28 IMPRESSION: 1. Extensive bilateral pulmonary emboli identified. 2. Moderate RIGHT heart strain. 3. Complete occlusion of the RIGHT popliteal artery. Thrombus or embolic disease in the RIGHT popliteal artery extends into the peroneal artery. Very poor runoff to the ankle via 3 vessels. 4. 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 5. Soft tissue occlusion RIGHT deep femoral profunda artery. 6. Very minimal atherosclerotic disease in the proximal SMA with no occlusion. 7. Cortical scar with increased soft tissue RIGHT kidney. Consider evaluation by ultrasound. Follow-up MRI renal mass protocol as patient's condition improves. Small caliber renal arteries. There are 2 small caliber RIGHT renal arteries. Notified YUMIKO Weiner at 02/09/2023 12:[address] Kraus also. Renal Ultrasound 02/09/23 13:33 IMPRESSION: Normal renal ultrasound. Recently described abnormality in the RIGHT kidney by CT is not evident by ultrasound. Probably due to its small size. Recommend MRI evaluation on a nonemergent basis with and without contrast. Recent Clincial Data Last Vital Signs Temp 99.1 F 02/09/23 20:00 Pulse 96 02/09/23 23:00 Resp 20 H 02/09/23 23:00 BP 126/84 02/09/23 23:00 Pulse Ox 94 02/09/23 23:00 O2 Del Method Room Air 02/09/23 18:19 O2 Flow Rate 2 02/09/23 12:00 Vital Signs Pulse Resp BP Pulse Ox 02/09/23 23:00 96 20 H 126/84 94 02/09/23 22:00 105 H 15 130/91 94 02/09/23 21:00 81 16 119/73 91 02/09/23 22:04 96 Intake & Output/Weight 02/08/23 02/09/23 02/10/23 02/11/23 06:59 06:59 06:59 06:59 Intake Total 203.964 / 203.964 Balance 203.964 / 203.964 Weight 97.522 kg Vitals Last Vital Signs Temp 99.1 F 02/09/23 20:00 Pulse 96 02/09/23 23:00 Resp 20 H 02/09/23 23:00 BP 126/84 02/09/23 23:00 Pulse Ox 94 02/09/23 23:00 O2 Del Method Room Air 02/09/23 18:19 O2 Flow Rate 2 02/09/23 12:00 TS Medications Medications Discontinued Medications Acetaminophen (Acetaminophen 325 Mg Tablet) 650 mg PO Q6H PRN PRN Reason: Mild/Mod Pain Or Temp >/= 101 Dextrose (Dextrose 50% Syringe 50 Ml) 50 ml IVP PRN PRN; Protocol PRN Reason: hypoglycemia protocol Dextrose (Dextrose 50% Syringe 50 Ml) 25 ml IVP ONCE PRN; Protocol PRN Reason: hypoglycemia protocol Fentanyl (Fentanyl 50 Mcg/Ml Inj 2ml) Confirm Administered Dose 100 mcg .ROUTE .STK-MED ONE Stop: 02/09/23 16:00 Glucagon (Glucagon 1 Mg/Ml Inj 1 Ml) 1 mg IM ONCE PRN; Protocol PRN Reason: Adult Acute Hypoglycemia Prot. Heparin Sodium (Porcine) (Heparin 5,000 Unit/Ml Inj 1 Ml) 4,000 unit IVP ONCE ONE Stop: 02/09/23 09:39 Last Admin: 02/09/23 10:30 Dose: 4,000 unit Heparin Sodium (Porcine) (Heparin 5,000 Unit/Ml Inj 1 Ml) Confirm Administered Dose 5,000 unit .ROUTE .STK-MED ONE Stop: 02/09/23 13:23 Heparin Sodium (Porcine) (Heparin 5,000 Unit/Ml Inj 1 Ml) Confirm Administered Dose 5,000 unit .ROUTE .ST-MED ONE Stop: 02/09/23 16:44 Heparin Sodium (Porcine) (Heparin 5,000 Unit/Ml Inj 1 Ml) Confirm Administered Dose 5,000 unit .ROUTE .[facility]-MED ONE Stop: 02/09/23 16:55 Heparin Sodium/Sodium Chloride (Heparin Drip) 25,000 unit in 500 mls @ 23.405 mls/hr IV .[id number] [facility] Last Infusion: 02/09/23 23:02 Dose: 13.84 unit/kg/hr, 27 mls/hr Lidocaine HCl (Xylocaine) Confirm Administered Dose 10 mls @ as directed .ROUTE .[facility]-MED ONE Stop: 02/09/23 13:23 Sodium Chloride (Sodium Chloride 0.9%) Confirm Administered Dose 1,000 mls @ as directed .ROUTE .[facility] ONE Stop: 02/09/23 16:26 Dextrose (D5w) 500 mls @ 100 mls/hr IV ONCE PRN; Protocol PRN Reason: Adult Acute Hypoglycemia Prot Sodium Chloride (Sodium Chloride 0.9%) 1,000 mls @ 100 mls/hr IV .Q10H [facility] Last Admin: 02/09/23 18:38 Dose: 100 mls/hr Insulin Human Lispro (Insulin Lispro 100 Unit/1 Ml) 0 unit SUBCUT WM&BEDTIME CHUCKIE; Protocol Last Admin: 02/09/23 20:18 Dose: 4 unit Iohexol (Iohexol 350 Mg/Ml 500 Ml Btl (Per Ml)) 0 ml IV ONCE ONE Stop: 02/09/23 10:56 Last Admin: 02/09/23 10:55 Dose: 125 ml Midazolam HCl (Midazolam 1 Mg/Ml Inj 2 Ml) Confirm Administered Dose 2 mg .ROUTE .[facility]-MED ONE Stop: 02/09/23 16:00 Morphine Sulfate (Morphine 4 Mg/Ml Sdv 1 Ml) 4 mg IVP ONCE ONE Stop: 02/09/23 10:15 Last Admin: 02/09/23 10:24 Dose: 4 mg Morphine Sulfate (Morphine 4 Mg/Ml Sdv 1 Ml) 2 mg IVP Q4H PRN PRN Reason: SEVERE PAIN Last Admin: 02/09/23 19:59 Dose: 2 mg Ondansetron HCl (Ondansetron 2 Mg/Ml Sdv 2 Ml) 4 mg IVP ONCE ONE Stop: 02/09/23 10:15 Last Admin: 02/09/23 10:24 Dose: 4 mg Ondansetron HCl (Ondansetron 2 Mg/Ml Sdv 2 Ml) 4 mg IVP Q6H PRN PRN Reason: vomiting, or N/V if npo Last Admin: 02/09/23 23:05 Dose: 4 mg Allergies acetaminophen [From Vicodin] Allergy (Verified 02/09/23 11:49) ADR-Itching hydrocodone [From Vicodin] Allergy (Verified 02/09/23 11:49) ADR-Itching Home Medications No Known Home Medications 02/09/23 [History Confirmed 02/09/23] Discharge Plan Discharge Patient Disposition: Xfer Short-Term Hosp Condition: Stable Prescriptions: No Action No Known Home Medications Discharge Orders: Transfer Out of Facility (Order); Ordered 02/10/23 Ordered By: Jt Kraus Referrals: Sandoval Castillo DO [Primary Care Provider] - Patient Instructions: Pain Management Transfer Attestations Time Spent in Transfer Care: greater than 30 min Quality Metrics Clinical Quality Measures [ Venous Thromboembolism { Contraindication to Overlap Therapy: Other (Started on heparin drip); VTE Discharge Education: Other (Transferred); Contraindication to Pharm VTE Prophylaxis: None; Pharmacological prophylaxis given;}] Coding Level of Care Code Acute Code for [facility] Diagnoses Critical limb ischemia of right lower extremity I70.221 Diabetes mellitus E11.9 Pulmonary emboli I26.99 Occlusion of right popliteal artery I70.201
[2023-02-10 16:14] LABS: Anti-Nuclear Antibody Screen NEGATIVE (NEGATIVE)
[2023-02-10 22:41] LABS: Lupus Hexagonal Phas Confirm NEGATIVE (NEGATIVE); PTT-LA-Screen 48 sec (< OR = 40)
[2023-02-12 09:14] LABS: Anti-Cardiolipin IgA AB <2.0 APL-U/mL; Beta 2 Glycoprotein I IGA AB <2.0 U/mL
[2023-02-12 21:14] LABS: PROTEIN S, ACTIVITY 119 % normal (70-150)
[2023-02-16 03:59] LABS: Antithrombin III Activity 101 % normal (80-135)
[2023-02-16 05:10] LABS: PROTEIN C, ACTIVITY 143 % normal (70-180)
== END 2023-02-09 23:26 | disposition short-term general hospital (02) | DRG 270 ==
LOC: ER 15:38 → ICU 16:01
PROVIDERS: Internal Medicine; Student in an Organized Health Care Education/Training Program; Admitting Provider Internal Medicine; Emergency Provider Physician Assistant; PCP Internal Medicine; Visit Provider Internal Medicine
PROC: 06CM3ZZ Extirpation of Matter from Right Femoral Vein, Percutaneous Approach (ICD-10-PCS; principal; 2023-02-09 16:30)
PROC: 06CM3ZZ Extirpation of Matter from Right Femoral Vein, Percutaneous Approach (ICD-10-PCS; 2023-02-09 16:30)
DX: E11.51 Type 2 diabetes mellitus with diabetic peripheral angiopathy without gangrene (principal); I26.99 Other pulmonary embolism without acute cor pulmonale; I70.229 Atherosclerosis of native arteries of extremities with rest pain, unspecified extremity; I82.431 Acute embolism and thrombosis of right popliteal vein; F17.220 Nicotine dependence, chewing tobacco, uncomplicated
CPT/HCPCS: 36415; 36416; 37184; 37224; 75625; 75635; 75710; 76770; 80053; 81001; 82962; 83036; 83090; 83735; 84443; 85025; 85300; 85303; 85306; 85347; 85610; 85613; 85651; 85730; 86038; 86140; 86146; 86147; 93005; 93306; 93926; 93971; 96361; 96365; 96372; 96375; 99152; 99153; 99285; C1725; C1769; C1887; C1894; J1644; J1815; J2250; J2270; J2405; J3010; J7030; Q9967

== ENCOUNTER 2024-04-18 15:44 | Emergency (ER) | payer BC, SELFPAY ==
[2024-04-18 16:14] VITALS: BP 149/101; PULSE 84; RESP 18; TEMP 36.4; O2SAT 94
--- NOTE | 2024-04-18 17:09 | ED_ITS ---
HPI - Back Pain/Injury General: Chief Complaint: Back Pain/Injury Stated Complaint: rib and kidney pain Time Seen by Provider: 04/18/24 15:54 History of Present Illness: 43-year-old male patient comes in today for complaints of left posterior rib pain. Patient reports that 1 week ago he had slipped in the kitchen and fell striking his left ribs. Since then patient has had persistent pain and discomfort. Patient appears nontoxic. Patient appears no acute distress. 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 Surgical History History of appendectomy History of cholecystectomy Family History Other Hypertension Social History Smoking and tobacco/nicotine status: current every day tobacco/nicotine user smokeless tobacco Smokeless tobacco user: chewing tobacco Alcohol intake: never Physical Exam Const: COMMON NORMALS: alert HENMT: COMMON NORMALS: normocephalic HEAD & SCALP: normocephalic MOUTH: Normal oral and palatal mucosa present Neck/C-Spine: COMMON NORMALS: full ROM Chest: CHEST: No abnormal inspection of the chest, No crepitus and Yes tenderness (Left posterior rib area) Resp: COMMON NORMALS: normal respiratory effort and clear to auscultation bilaterally AUSCULTATION: clear to auscultation bilaterally Cardio: COMMON NORMALS: regular rate and regular rhythm RATE: regular rate RHYTHM: regular rhythm GI: COMMON NORMALS: Soft to palpation and non-tender PALPATION: Yes Soft to palpation Back/Pelvis: COMMON NORMALS: thoracic and lumbar spine normal to inspection Extremity: COMMON NORMALS: normal to inspection Neuro: SENSORIUM/ORIENTATION: Yes alert Skin: COMMON NORMALS: turgor normal GENERAL SKIN EXAM: turgor normal Course Vital Signs: Vital signs: Vital Signs Temperature 97.6 F 04/18/24 17:59 Pulse Rate 74 04/18/24 17:59 Respiratory Rate 18 04/18/24 17:59 Blood Pressure 145/97 04/18/24 17:59 Pulse Oximetry 98 04/18/24 17:59 Oxygen Delivery Me thod Room Air 04/18/24 17:31 MDM - Back Pain/Injury Medical Decision Making 43-year-old male patient comes in today for complaints of injury secondary to a fall 1 week ago. Patient has continued left posterior rib pain and discomfort. Patient appears nontoxic. Patient appears no acute distress. Respirations are even lungs are clear to auscultation. Palpation of the left posterior ribs and elicits pain without signs of crepitus or flailing. Differential diagnosis rib contusion, rib fracture, malingering. X-rays noted no fractures of the rib. Recommend patient follow-up with primary care for further evaluation and treatment. Return to ED for worsening symptoms such as high fever, severe shortness of breath, or severe chest pain. Labs Radiology Impressions Ribs X-Ray 04/18/24 17:11 IMPRESSION: No acute pulmonary disease. No acute rib fractures visualized. All radiology interpretation(s) finalized by discharge Discharge Plan Discharge Patient Disposition: Home Clinical Impression: Contusion of rib on left side Qualifiers: Encounter type: initial encounter Qualified Code(s): S20.212A - Contusion of left front wall of thorax, initial encounter Condition: Stable Prescriptions: No Action No Known Home Medications Discharge Orders: Discharge ED (Routine); Ordered 04/18/24 Ordered By: Fredi Bethea Referrals: Sandoval Castillo DO [Primary Care Provider] - Discharge Diet: Usual diet Discharge Activity: Increase activity as tolerated Patient Instructions: Rib Contusion (ED) Activity Restrictions/Additional Instructions: Home and rest. Drink plenty of water and fluids. Use acetaminophen and/or ice packs to help with pain. Usually rib contusions will persist with pain for at least 4 to 6 weeks. Follow-up with primary care in 1 week for recheck. Return to ER for worsening symptoms such as increased chest pain, temperature greater than 100.4, or any concerns. Thank you for choosing [facility] for your healthcare needs today. Please realize that you were seen in the emergency department and that we are providing you with an emergency medical screening exam and this may not be a complete and all exclusive of all testing and/or medical workup we may need to determine your element or severity of your illness. It is very important that you follow-up as instructed with your primary care provider or specialist for the additional evaluation and to discuss your medical treatment plan. You may return to the emergency department should you have concerns or if your condition changes or worsens in any way. Coding Level of Care Code ED Sap Director for Roque Salmon
--- NOTE | 2024-04-18 17:11 | XRR_ITS ---
PROCEDURE INFORMATION: Exam: XR Left Ribs with PA Chest Exam date and time: 04/18/2024 5:21 PM Age: 43 years old Clinical indication: Injury or trauma; Fall; Rib area, left side; Blunt trauma; Injury date: 4 days ago; Injury details: Slipped last Tuesday and hit ribs on counter top. Reports that he heard a crunch . Then about an hr ago his lower back and kidneys started to ache. Denies urinary problems. Painful to take a deep breath. States that it feels like he needs to have a bm. Reports normal bm this am. ; Additional info: Injury, no prior imaging TECHNIQUE: Imaging protocol: Radiologic exam of the left ribs with PA chest. Views: 3 views COMPARISON: CR XR ribs LT 2V* [id number] 06/07/2022 8:50 AM FINDINGS: Lungs: The lungs are adequately expanded. No focal consolidations or pulmonary edema. Pleural spaces: No pleural effusions or pneumothorax. Heart/Mediastinum: No cardiomegaly. Bones/joints: No acute fractures. XR/XR ribs LT mn 3V w CXR1V [id number] IMPRESSION: No acute pulmonary disease. No acute rib fractures visualized.
[2024-04-18 17:31] VITALS: BP 145/97; PULSE 74; O2SAT 98
[2024-04-18 17:59] VITALS: BP 145/97; PULSE 74; RESP 18; TEMP 36.4; O2SAT 98
== END 2024-04-18 18:05 | disposition home or self-care (01) ==
PROVIDERS: Emergency Provider Nurse Practitioner Family; PCP Internal Medicine
DX: S20.212A Contusion of left front wall of thorax, initial encounter (principal); E11.9 Type 2 diabetes mellitus without complications; F17.220 Nicotine dependence, chewing tobacco, uncomplicated; W01.0XXA Fall on same level from slipping, tripping and stumbling without subsequent striking against object, initial encounter; Y92.000 Kitchen of unspecified non-institutional (private) residence as the place of occurrence of the external cause
CPT/HCPCS: 71101; 99283

== ENCOUNTER 2024-04-19 11:22 | Emergency (ER) | payer BC, SELFPAY ==
[2024-04-19 11:44] VITALS: BP 157/96; PULSE 101; RESP 27; TEMP 36.4; O2SAT 94; BMI 28.5
--- NOTE | 2024-04-19 11:51 | ED_ITS ---
HPI - Abdominal Pain 2 General: Chief Complaint: Abdominal Pain Stated Complaint: abdp Time Seen by Provider: 04/19/24 11:25 History of Present Illness: 43-year-old man with history of obesity, cholecystectomy, appendectomy, and an arterial blood clot and pulmonary emboli that were diagnosed a little over a year ago and since then he says his primary is taken him off of his blood thinners and they have no idea what caused blood clots who presents to the emergency room with abdominal pain. Says he was here yesterday but they focused only on some left rib pain he had after a fall about a week ago, but he says his primary concern and what has become much worse his pain in his epigastric region that is very severe. He has had nausea and vomiting he says. No known fevers. No altered mental status. No focal motor deficits. Review of Systems 2 Narrative: Constitutional symptoms: Negative except as documented in HPI. Skin symptoms: Negative except as documented in HPI. Eye symptoms: Negative except as documented in HPI. ENMT symptoms: Negative except as documented in HPI. Respiratory symptoms: Negative except as documented in HPI. Cardiovascular symptoms: Negative except as documented in HPI. Gastrointestinal symptoms: Negative except as documented in HPI. Genitourinary symptoms: Negative except as documented in HPI. Musculoskeletal symptoms: Negative except as documented in HPI. Neurologic symptoms: Negative except as documented in HPI. Psychiatric symptoms: Negative except as documented in HPI. Endocrine symptoms: Negative except as documented in HPI. 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 Skin: Warm, dry. Head: Normocephalic, atraumatic. Neck: Supple, trachea midline. Eye: Extraocular movements are intact. Ears, nose, mouth and throat: mucosa moist. Cardiovascular: Regular,, tachycardic normal peripheral perfusion. Respiratory: Lungs are clear to auscultation, respirations are non-labored, breath sounds are equal, Symmetrical chest wall expansion. Gastrointestinal: Soft, exquisite tenderness to palpation in the epigastric region., Non distended Musculoskeletal: Normal ROM, no deformity. Neurological: Alert and oriented, No focal neurological deficit observed. Psychiatric: Cooperative, appropriate mood & affect. Course 2 Vital Signs: Vital signs: Vital Signs Temperature 97.6 F 04/19/24 14:36 Pulse Rate 96 04/19/24 14:36 Respiratory Rate 25 H 04/19/24 14:36 Blood Pressure 157/96 04/19/24 14:36 Pulse Oximetry 96 04/19/24 14:36 Oxygen Delivery Me thod Room Air 04/19/24 13:03 MDM - Abdominal Pain Medical Decision Making Differential diagnosis for patient presenting with epigastric abdominal pain including but not limited to and based on the above HPI, review of systems and physical exam: Cholelithiasis or cholecystitis. Hepatitis. Diverticulitis. Constipation. Ureterolithiasis. Urinary tract infection. Appendicitis. colitis. small bowel obstruction. crohn's flare. pancreatitis. gastritis. peptic ulcer. Aortic disection. Also would have concern for recurrence of pulmonary emboli so PE study was ordered of the chest Workup including imaging and lab work replaced based on the above differential, history and exam to evaluate differential diagnosis EKG: Time 1340. Rate 90. Normal sinus rhythm, No ST-T changes, no ectopy, normal [place] & QRS intervals, This was reviewed and interpreted by myself the ER physician at 1342 Lab Review: Laboratory results were reviewed and interpreted by myself the emergency room physician. Patient has leukocytosis with a white count of 24,000. Some mild renal insufficiency with a BUN/creatinine of 24 and 1.2. His glucose is elevated at 504. No history of diabetes. Lactic acid is quite elevated at 6.5. No elevation in serial cardiac markers. CT of the chest abdomen pelvis with PE protocol of the chest: There is a large amount of bilateral pulmonary embolic burden. There is some mild right heart strain. Portal venous air and extensive ischemic changes noticed within the large portion of the small bowel. Large amount of SMV thrombus. Small amount of thrombus protrudes into the abdominal aorta. Small but multifocal right renal infarcts. There is air in the central mesentery from the ischemic changes within the bowel. There is also noted in the SMV. No ascites. I reviewed the patient's medical record. Reexamination: Patient still appears in some distress from pain. He has good distal pulses. He is still extremely tender in his abdomen. No altered mental status. No focal motor deficits. He is not requiring any oxygen at this time. I discussed with family further medical history and he takes no medications for blood pressure. No diabetes. Consultation: I have spoken with general surgery at at [facility]. Dr. Kendrick. She recommends rapid transfer preferably by air to the emergency room for intervention as soon as possible. Consultation: I spoke with Dr. Farris who is excepted the patient to the emergency room at [facility]. Assessment and plan: Pulmonary embolism SMA thrombus Mesenteric ischemia Possible sepsis Hyperglycemia -High intensity heparin drip with full bolus. -Dilaudid x 2. Zofran. -10 units IV insulin -Patient may be septic. Lactic acidosis. Leukocytosis. Source would be gastrointestinal likely. - I am holding on further fluids other than 1 L at this time given that he has some right heart strain -Broad-spectrum antibiotics were administered. Zyvox and meropenem -Sepsis quality measures. -Lactic acid with a reflex was ordered. -Blood cultures were ordered. - Discussed findings and plan with patient. Answered any questions. - All laboratory values were reviewed and interpreted personally by myself, the ER physician - All imaging was reviewed and interpreted personally by myself, the ER physician. - Evaluation and treatment of this problem were appropriate in the emergency setting Critical care: -I spent a total of >75 minutes of critical care time managing the patient, independent of any other practitioner. -The time involved in the performance of separately reportable procedures was not counted towards critical care time. Lab Data 04/19/24 12:05 04/19/24 12:05 Labs/Radiology: Radiology Impressions Chest/Abdomen/Pelvis CT 04/19/24 11:59 IMPRESSION: 1. Large amount of bilateral pulmonary embolic burden. 2. Mild RIGHT heart strain. 3. Portal venous air and extensive ischemic changes noted within the large portion of the small bowel. 4. Large amount of SMV thrombus. A small amount of thrombus protrudes into the abdominal aorta. 5. Small but multifocal RIGHT renal infarcts. 6. Air noted within the SMV. 7. There is air in the central mesentery from the ischemic changes within the bowel. 8. No ascites. Notified Laura Osborne MD at 04/19/2024 1:05 PM. Laboratory Results WBC 24.05 10^3/uL (3.29-11.43) H 04/19/24 12:05 RBC 6.09 10^6/uL (3.85-5.65) H 04/19/24 12:05 Hgb 17.30 g/dL (11.27-16.99) H 04/19/24 12:05 Hct 50.6 % (37-53) 04/19/24 12:05 MCV 83.1 fl (82-101) 04/19/24 12:05 MCH 28.4 pg (27-33) 04/19/24 12:05 MCHC 34.2 g/dL (30-55) 04/19/24 12:05 RDW 12.9 % (12.1-15.1) 04/19/24 12:05 Plt Count 229 10^3/cmm (157-399) 04/19/24 12:05 MPV 11.0 fL (7.4-10.4) H 04/19/24 12:05 Neut % (Auto) 90.5 % 04/19/24 12:05 Lymph % (Auto) 4.6 % 04/19/24 12:05 Stoddard % (Auto) 4.2 % 04/19/24 12:05 Eos % (Auto) 0.0 % 04/19/24 12:05 Baso % (Auto) 0.1 % 04/19/24 12:05 Neut # (Auto) 21.75 10^3/uL (1.8-7.7) H 04/19/24 12:05 Lymph # (Auto) 1.1 10^3/uL (0.8-4.8) 04/19/24 12:05 Stoddard # (Auto) 1.0 10^3/uL (0.2-0.9) H 04/19/24 12:05 Eos # (Auto) 0.0 10^3/uL (0.0-0.8) 04/19/24 12:05 Baso # (Auto) 0.0 10^3/uL (0.0-0.1) 04/19/24 12:05 Nucleated RBC % (auto) 0 % 04/19/24 12:05 Nucleated RBCs # 0.0 /100WBC 04/19/24 12:05 PT 15.10 SECONDS (12.1-14.9) H 04/19/24 12:05 INR 1.15 (0.8-1.2) 04/19/24 12:05 APTT 25.4 SECONDS (23.9-36.7) 04/19/24 12:05 Specimen Type Arterial 04/19/24 13:24 Sample Site Radial, left 04/19/24 13:24 ABG pH 7.30 (7.35-7.45) L 04/19/24 13:24 ABG pCO2 18.5 mmHg (35-45) L* 04/19/24 13:24 ABG pO2 99.6 mmHg (80.0-100.0) 04/19/24 13:24 ABG PO2/FiO2 Ratio 474 04/19/24 13:24 ABG HCO3 9.2 mmol/L (22-26) L 04/19/24 13:24 ABG O2 Saturation 97.7 04/19/24 13:24 ABG Base Excess -14.3 mmol/L (-2.0-2.0) L 04/19/24 13:24 Jun Test Pos 04/19/24 13:24 A-a O2 Gradient 3.1 mmHg (5-10) L 04/19/24 13:24 Hematocrit 50.0 % (42-52) 04/19/24 13:24 Hgb O2 Saturation 95.9 % (95-100) 04/19/24 13:24 Carboxyhemoglobin 0.8 %THgb (0.4-20.1) 04/19/24 13:24 Methemoglobin 1.1 % (0.4-1.5) 04/19/24 13:24 Total Hemoglobin 16.3 g/dL (14-18) 04/19/24 13:24 Sodium 133.0 mmol/L (131-143) 04/19/24 13:24 Potassium 4.1 mmol/L (3.5-5.0) 04/19/24 13:24 Glucose 428.0 mg/dL (70-115) H 04/19/24 13:24 Ionized Calcium 1.1 mmol/L (1.1-1.4) 04/19/24 13:24 O2 Delivery Device Room air 04/19/24 13:24 FiO2 21.0 % 04/19/24 13:24 Director Financial Planning ID Kinjal 04/19/24 13:24 Sodium 135 mmol/L (136-145) L 04/19/24 12:05 Potassium 3.4 mmol/L (3.5-5.1) L 04/19/24 12:05 Chloride 96 mmol/L (98-107) L 04/19/24 12:05 Carbon Dioxide 12 mmol/L (22-29) L 04/19/24 12:05 Anion Gap 30.4 (5-19) H 04/19/24 12:05 BUN 24 mg/dL (6-20) H 04/19/24 12:05 Creatinine 1.2 mg/dL (0.7-1.2) 04/19/24 12:05 GFR Calculation 65.5 mL/min (90-130) L 04/19/24 12:05 Glucose 504 mg/dL (65-115) H* 04/19/24 12:05 Calculated Osmolality 307 mOsm/kg (285-295) H 04/19/24 12:05 Lactic Acid 6.5 mmol/L (0.5-2.2) H* 04/19/24 12:05 Calcium 8.6 mg/dL (8.5-10.5) 04/19/24 12:05 Total Bilirubin 0.7 mg/dL (0.15-1.2) 04/19/24 12:05 AST 42 U/L (0-40) H 04/19/24 12:05 ALT 38 U/L (0-41) 04/19/24 12:05 Alkaline Phosphatase 131 U/L (40-130) H 04/19/24 12:05 Troponin T Baseline 23 ng/L (0-15) H 04/19/24 12:05 Troponin T 120 Minute 19.99 ng/L (0-15) H 04/19/24 14:01 Delta Troponin T -3.01 ABS# (0-10) L 04/19/24 14:01 C-Reactive Protein 62.9 mg/L (0.0-4.9) H 04/19/24 12:05 NT-Pro-B Natriuret Pep 1152 pg/mL (0-125) H 04/19/24 12:05 Total Protein 7.6 g/dL (6.6-8.7) 04/19/24 12:05 Albumin 4.2 g/dL (3.5-5.2) 04/19/24 12:05 Globulin 3.4 g/dL (1.3-4.6) 04/19/24 12:05 Lipase 33 U/L (13-60) 04/19/24 12:05 Urine Color Yellow (Yellow) 04/19/24 13:25 Urine Appearance Clear (CLEAR) 04/19/24 13:25 Urine pH 5.0 (5-7) 04/19/24 13:25 Ur Specific Holcomb 1.047 (1.005-1.030) H 04/19/24 13:25 Urine Protein Negative (Negative) 04/19/24 13:25 Urine Glucose (UA) 3+ (Normal) H 04/19/24 13:25 Urine Ketones 3+ (Negative) H 04/19/24 13:25 Urine Blood Negative (Negative) 04/19/24 13:25 Urine Nitrate Negative (Negative) 04/19/24 13:25 Urine Bilirubin Negative (Negative) 04/19/24 13:25 Urine Urobilinogen 0.2 mg/dL (Negative) 04/19/24 13:25 Ur Leukocyte Esterase Negative (Negative) 04/19/24 13:25 Urine RBC 0-2 /hpf (0-2) 04/19/24 13:25 Urine WBC 0-5 /hpf (0-5) 04/19/24 13:25 Ur Squamous Epith Cells 0-5 /hpf (0-5) 04/19/24 13:25 Amorphous Sediment Not Reportable 04/19/24 13:25 Urine Bacteria None seen /hpf (NONE) 04/19/24 13:25 Hyaline Casts 2.46 /lpf 04/19/24 13:25 Urine Opiates Screen Negative ng/mL (Negative) 04/19/24 13:25 Ur Barbiturates Screen Negative ng/mL (Negative) 04/19/24 13:25 Ur Phencyclidine Scrn Negative ng/mL (Negative) 04/19/24 13:25 Ur Amphetamines Screen Negative ng/mL (Negative) 04/19/24 13:25 U Benzodiazepines Scrn Negative ng/mL (Negative) 04/19/24 13:25 Urine Cocaine Screen Negative ng/mL (Negative) 04/19/24 13:25 U Marijuana (THC) Screen Positive ng/mL (Negative) H 04/19/24 13:25 All radiology interpretation(s) finalized by discharge Discharge Plan Discharge Patient Disposition: Xfer Short-Term Hosp Clinical Impression: Pulmonary embolism, 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
--- NOTE | 2024-04-19 11:59 | CT_ITS ---
WS: [id number] CTA CHEST WITH CT ABDOMEN AND PELVIS. HISTORY: Abdominal pain with nausea and vomiting. Hyperventilation. TECHNIQUE: CT angiogram is performed through the chest. Additional imaging is performed through the a bdomen and pelvis with IV contrast. Sagittal and coronal reformats have been submitted. MIP imaging also reviewed. All CT scans at [facility] use at least one of these dose optimization techniqu es: automated exposure control; mA and/or kV adjustment per patient size (includes targeted exams whe re dose is matched to clinical indication); or iterative reconstruction. Contrast: Omnipaque 350; 95 cc IV. DLP: 1389.46 mGy.cm COMPARISON: 02/09/2023 Chest CTA: Adequate opacification of the pulmonary arteries. There are extensive bilateral pulmonary emboli. Emboli begins in the distal main RIGHT and LEFT pulmonary arteries and extend into the lobar, segmental and subsegmental branches. Greater distribution of emboli in the RIGHT and LEFT lower lobe s. No pulmonary infarct at this time. There is mild pleural thickening RIGHT lower lobe which may be the beginning of an early peripheral infarct. Heart is normal size. There is mild RIGHT heart strain. Pulmonary artery size is slightly greater than the aorta. Mild tricuspid regurgitation. No adenopath y. Normal size aorta. Small hiatal hernia. Abdomen CT: Liver is normal size with hepatic steatosis. There is extensive portal venous air indicat ing bowel ischemia. Air is noted extending into the SMV. Prior cholecystectomy. Normal size spleen. P ossible splenic infarct medially. Normal pancreas. Normal adrenal glands. Areas of decreased wedge-shaped enhancement involving the RIGHT kidney consistent with multifocal momo al infarcts. LEFT kidney appears normally enhancing. There is extensive abnormality throughout the small bowel consistent with ischemic changes. There is pneumatosis and fluid-filled mildly dilated small bowel loops. Ischemic changes begin within the jeju num and involve a large portion of the jejunum and probably involves the distal ileum. The distal ile um is collapsed. Dissecting air is noted throughout the small bowel and also into the central mesente ry. There is a large amount of thrombus in the SMV and continuing peripherally into the distal artery. Sm all amount of thrombus also extends into the abdominal aorta at the origin of the SMV. Celiac axis is appropriate. Renal arteries are small caliber but no thrombus is identified but the evaluation is li mited. Distal aorta and the iliac arteries are patent. No ascites or adenopathy. Pelvic CT: No free fluid. Normal urinary bladder. No destructive bone lesions. CT/CT angio chest w abd pel w con IMPRESSION: 1. Large amount of bilateral pulmonary embolic burden. 2. Mild RIGHT heart strain. 3. Portal venous air and extensive ischemic changes noted within the large por tion of the small bowel. 4. Large amount of SMV thrombus. A small amount of thrombus protrudes into the abdominal aorta. 5. Small but multifocal RIGHT renal infarcts. 6. Air noted within the SMV. 7. There is air in the central mesentery from the ischemic changes within the bowel. 8. No ascites. Notified Laura Osborne MD at 04/19/2024 1:05 PM.
[2024-04-19 12:21] VITALS: RESP 18
[2024-04-19] MEDS: HYDROmorphone 1 mg/mL INJ 1 mL IVP ×2 (12:21→13:37)
[2024-04-19] MEDS: ondansetron 2 mg/ML SDV 2 mL 4 MG IVP (12:24)
[2024-04-19 12:26] LABS: Basophils % 0.1 %; Hematocrit 50.6 % (37-53); Lymphocytes # 1.1 10^3/uL (0.8-4.8); Lymphocytes % 4.6 %; Mean Corpuscular HGB Conc 34.2 g/dL (30-55); Mean Corpuscular Hemoglobin 28.4 pg (27-33); Mean Corpuscular Volume 83.1 fl (82-101); Monocytes % 4.2 %; Neutrophils # 21.75 10^3/uL (1.8-7.7); Neutrophils % 90.5 %; Nucleated Red Blood Cells % 0 %; Platelet Count 229 10^3/cmm (157-399); Red Blood Count 6.09 10^6/uL (3.85-5.65); Red Cell Distribution Width 12.9 % (12.1-15.1); White Blood Count 24.05 10^3/uL (3.29-11.43)
[2024-04-19] MEDS: sodium chloride 0.9% 1,000 ML 999 ML IV ×2 (12:27→13:44)
[2024-04-19] MEDS: iohexol 350 mg/mL 500 mL Btl (per mL) IV (12:38)
[2024-04-19 12:42] LABS: Lactic Sepsis W/Reflex 6.5 mmol/L (0.5-2.2)
[2024-04-19 12:47] LABS: Alanine Aminotransferase 38 U/L (0-41); Albumin Level 4.2 g/dL (3.5-5.2); Alkaline Phosphatase 131 U/L (40-130); Anion Gap 30.4 (5-19); Aspartate Amino Transferase 42 U/L (0-40); Blood Urea Nitrogen 24 mg/dL (6-20); C Reactive Protein 62.9 mg/L (0.0-4.9); Calcium 8.6 mg/dL (8.5-10.5); Carbon Dioxide 12 mmol/L (22-29); Chloride 96 mmol/L (98-107); Creatinine Clr Calc Pharmacy 90.5737; Globulin 3.4 g/dL (1.3-4.6); Glomerular Filtration Rate 65.5 mL/min (90-130); Lipase 33 U/L (13-60); Osmolality Calculated 307 mOsm/kg (285-295); Potassium 3.4 mmol/L (3.5-5.1); Sodium 135 mmol/L (136-145); Total Bilirubin 0.7 mg/dL (0.15-1.2); Total Protein 7.6 g/dL (6.6-8.7)
[2024-04-19 13:02] LABS: Glucose 504 mg/dL (65-115)
[2024-04-19 13:03] VITALS: BP 157/96; PULSE 96; O2SAT 97
[2024-04-19] MEDS: heparin 5,000 unit/mL INJ 1 mL 4000 UNIT IVP (13:22)
--- NOTE | 2024-04-19 13:29 | PC.NURSE ---
PATIENT HEPARIN DRIP DELAYED DUE TO PROTOCOL ERROR. DR. BARKER NOTIFIED, DON NOTIFIED, CHARGE NURSE NOTIFIED. DR. BARKER GAVE VERBAL INSTRUCTIONS TO GIVE INITIAL 4000 UNIT HEPARIN BOLUS. BOLUS GIVEN. HEPARIN DRIP PROTOCOL TO BE DETERMINED. CHARGE NURSE CONTACTED [employer]PER[employer] AND WAS GIVEN INSTRUCTION THAT THEY WOULD CONTACT HEPARIN PROTOCOL MANAGEMENT TO FIX ERROR.
[2024-04-19 13:35] LABS: Alveolar-Arterial Oxygen Gradi 3.1 mmHg (5-10); Base Excess ABG -14.3 mmol/L (-2.0-2.0); Blood Gas Allen Test Pos; Blood Gas Operator Identificat WALCI; Blood Gas Sample Site Radial, left; Blood Gas Sample Type Arterial; Carboxyhemoglobin 0.8 %THgb (0.4-20.1); HCO3 ABG 9.2 mmol/L (22-26); HGB O2 Sat 95.9 % (95-100); Ionized Calcium Level - ABG 1.1 mmol/L (1.1-1.4); Methemoglobin 1.1 % (0.4-1.5); Oxygen Device ROOM AIR; Oxygen Saturation ABG 97.7; PO2 ABG 99.6 mmHg (80.0-100.0); PO2 FiO2 Ratio Arterial Blood 474; Potassium Level - ABG 4.1 mmol/L (3.5-5.0); Total Hemoglobin 16.3 g/dL (14-18)
[2024-04-19 13:35] LABS: INR 1.15 (0.8-1.2); Partial Thromboplastin Time 25.4 SECONDS (23.9-36.7)
[2024-04-19 13:36] LABS: ABG PCO2 18.5 mmHg (35-45)
[2024-04-19 13:37] VITALS: RESP 25; O2SAT 96
[2024-04-19] MEDS: meropenem 500 mg SDV IVP (13:38)
[2024-04-19 13:40] LABS: Troponin(5th) Baseline 23 ng/L (0-15)
--- NOTE | 2024-04-19 13:40 | ECG_ITS ---
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 Measurements Intervals [place] Rate: 90 P: 11 MS: 151 QRS: -32 QRSD: 95 T: 2 QT: 373 QTc: 459 Interpretive Statements SINUS RHYTHM LEFT AXIS DEVIATION [QRS AXIS < -30] Compared to ECG 02/09/2023 11:56:37 Left-axis deviation now present Incomplete right bundle-branch block no longer present Electronically Signed On 04-19-2024 16:51:09 CDT by José Schneider M.D. [id number]
[2024-04-19 13:42] LABS: Bilirubin Urine Negative (Negative); Blood Urine Negative (Negative); Glucose Urine UA 3+ (Normal); Ketones Urine 3+ (Negative); Leukocyte Esterase Urine Negative (Negative); Nitrate Urine Negative (Negative); Protein Urine Negative (Negative); Urine Appearance Clear (CLEAR); Urine Color Yellow (Yellow); Urobilinogen Urine 0.2 mg/dL (Negative)
[2024-04-19 13:45] LABS: Bacteria Urine None Seen /hpf; Hyaline Casts Urine 2.46 /lpf; RBC Urine 0-2 /hpf (0-2); Squamous Epithelial Cell Urine 0-5 /hpf (0-5); WBC Urine 0-5 /hpf (0-5)
[2024-04-19] MEDS: insulin regular-human 100 units/1 mL 10 UNIT IVP (13:46)
[2024-04-19 13:48] LABS: Specific Gravity, Urine 1.047 (1.005-1.030)
[2024-04-19 13:49] LABS: Add Urine Culture? No; Amphetamines Screen Urine Negative (Negative); Barbiturates Screen Urine Negative (Negative); Benzodiazepines Screen Urine Negative (Negative); Cocaine Screen Urine Negative (Negative); Opiate Screen Urine Negative (Negative); PCP Screen Urine Negative (Negative); THC Screen Urine Positive (Negative)
[2024-04-19] MEDS: linezolid premix 600 MG/300 ML PREMIX 300 MG IV (13:50)
[2024-04-19] MEDS: heparin drip 25,000 UNIT/500 ML PREMIX 22.32 UNIT IV (13:55)
[2024-04-19 13:58] LABS: NT Pro B Type Natriuretic Pept 1152 pg/mL (0-125)
[2024-04-19 14:03] LABS: Reflex Lactate Order REFLEX LACTIC ORDERD
[2024-04-19 14:30] LABS: Troponin 5 2HR 19.99 ng/L (0-15)
[2024-04-19 14:34] LABS: Troponin 5 2HR Delta -3.01 ABS# (0-10)
[2024-04-19 14:36] VITALS: BP 157/96; PULSE 96; RESP 25; TEMP 36.4; O2SAT 96
== END 2024-04-19 14:20 | disposition short-term general hospital (02) ==
PROVIDERS: Emergency Provider Emergency Medicine; PCP Internal Medicine
DX: I26.99 Other pulmonary embolism without acute cor pulmonale (principal); K55.029 Acute infarction of small intestine, extent unspecified; K55.019 Acute (reversible) ischemia of small intestine, extent unspecified; E11.65 Type 2 diabetes mellitus with hyperglycemia; F17.220 Nicotine dependence, chewing tobacco, uncomplicated
CPT/HCPCS: 36415; 36600; 71275; 74177; 80051; 80053; 80306; 81001; 82330; 82805; 83605; 83690; 83880; 84484; 85025; 85610; 85730; 86140; 87040; 93005; 96361; 96374; 96375; 96376; 99291; 99292; J1170; J1644; J1815; J2020; J2185; J2405; J7030; Q9967

== ENCOUNTER → 2024-06-12 10:37 | Outpatient (BNVA) | payer BC, SELFPAY | PROVIDERS: PCP Family Medicine; Visit Provider Family Medicine | DX: Z79.4 Long term (current) use of insulin (principal); M25.511 Pain in right shoulder; M79.601 Pain in right arm; G62.9 Polyneuropathy, unspecified; E11.9 Type 2 diabetes mellitus without complications; I26.99 Other pulmonary embolism without acute cor pulmonale | CPT/HCPCS: 73030; 73060; 80053; 82306; 82607; 82728; 82746; 83036; 83540; 83735; 84443; 85025 ==

== ENCOUNTER → 2024-09-18 10:30 | Outpatient (BNVA) | payer BC, SELFPAY | PROVIDERS: PCP Family Medicine; Visit Provider Family Medicine | DX: E11.9 Type 2 diabetes mellitus without complications (principal); Z79.4 Long term (current) use of insulin | CPT/HCPCS: 80048; 83036 ==

== ENCOUNTER → 2024-12-18 11:30 | Outpatient (BNVA) | payer BC, SELFPAY | PROVIDERS: PCP Family Medicine; Visit Provider Family Medicine | DX: E11.9 Type 2 diabetes mellitus without complications (principal); F41.9 Anxiety disorder, unspecified; F32.A Depression, unspecified; R79.89 Other specified abnormal findings of blood chemistry; D50.9 Iron deficiency anemia, unspecified; G62.9 Polyneuropathy, unspecified; E55.9 Vitamin D deficiency, unspecified; Z79.4 Long term (current) use of insulin | CPT/HCPCS: 80053; 80061; 82306; 82607; 82728; 83036; 83540; 84439; 85025 ==

== ENCOUNTER → 2025-03-19 10:57 | Outpatient (BNVA) | payer BC, SELFPAY | PROVIDERS: PCP Family Medicine; Visit Provider Family Medicine | DX: E11.9 Type 2 diabetes mellitus without complications (principal); Z79.4 Long term (current) use of insulin; Z79.01 Long term (current) use of anticoagulants; F41.9 Anxiety disorder, unspecified; F32.A Depression, unspecified | CPT/HCPCS: 80053; 83036; 85027 ==

== ENCOUNTER 2025-05-01 22:36 | Emergency (ER) | payer BC, SELFPAY ==
[2025-05-01 22:42] VITALS: BP 130/84; PULSE 114; RESP 18; TEMP 36.7; O2SAT 95; BMI 25.8
--- NOTE | 2025-05-02 00:56 | W.ED.EXTPRO ---
HPI - Extremity Problem General: Chief complaint: Extremity Injury, Lower Stated complaint: Rt foot, possible blood clot Time Seen by Provider: 05/02/25 00:36 History of Present Illness: This patient is a 44-year-old white male who presents to the emergency department with a wound on the right great toe. Patient was concerned about a possible blood clot. States he noticed the redness yesterday. He has not had a fever. Related Data Previous Rx's ?Medication ?Instructions ?Recorded escitalopram oxalate 10 mg tablet 10 mg PO DAILY #30 tabs 12/18/24 (Lexapro) rivaroxaban 20 mg tablet 20 mg PO DAILY #90 tabs 12/18/24 cephalexin 500 mg capsule 500 mg PO QID 10 days #40 caps 05/02/25 sulfamethoxazole 800 1 tab PO BID 10 days #20 tabs 05/02/25 mg-trimethoprim 160 mg tablet (Bactrim DS) Allergies Allergy/AdvReac Type Severity Reaction Status Date / Time hydrocodone (From Vicodin) Allergy ADR-Itching Verified 03/19/25 10:08 Review of Systems General: Reports: 10 or more systems reviewed and unremarkable except in HPI and below Skin/Breast: Reports: erythema (Redness and swelling of the right great toe.) PFSH ED PFSH: Medical History (Updated 05/02/25 @ 00:53 by Harris Brush MD) Type 2 diabetes mellitus without complication, with long-term current use of insulin 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 Surgical History History of cholecystectomy History of appendectomy Family History Other Hypertension Social History Smoking and tobacco/nicotine status: never used tobacco/nicotine Alcohol intake: never Substance/Drug Use: never Physical Exam Const: COMMON NORMALS: no acute distress, patient oriented x3 and no limitations GENERAL APPEARANCE: cooperative and comfortable HENMT: COMMON NORMALS: normocephalic, atraumatic, Normal nasal mucous membranes and turbinates present, moist oral mucous membranes and oropharynx normal HEAD & SCALP: normal to inspection, normocephalic and atraumatic FACE & SINUS: normal facial exam NOSE: Normal nasal mucous membranes and turbinates present Eye: COMMON NORMALS: Equal, round and reactive pupils present, EOMs intact bilaterally and conjunctivae normal GENERAL EYE: appearance normal, both eyes and all related structures CONJUNCTIVA: Yes conjunctivae normal PUPIL: Yes Equal, round and reactive pupils present Neck/C-Spine: COMMON NORMALS: supple and no JVD Chest: COMMONS NORMALS: normal inspection of the chest Resp: COMMON NORMALS: normal respiratory effort and clear to auscultation bilaterally AUSCULTATION: clear to auscultation bilaterally Cardio: COMMON NORMALS: no JVD, regular rate, regular rhythm, No gallops present (Cardio), No murmurs present (Cardio) and No rub (Cardio) RATE: regular rate RHYTHM: regular rhythm GI: COMMON NORMALS: Normal to inspection, nondistended, normoactive bowel sounds present, Soft to palpation and non-tender AUSCULTATION: Yes normoactive bowel sounds PALPATION: Yes Soft to palpation : COMMON NORMALS: Yes no CVA tenderness BLADDER/KIDNEY EXAM: Yes no CVA tenderness Back/Pelvis: COMMON NORMALS: no CVA tenderness and thoracic and lumbar spine normal to inspection Extremity: COMMON NORMALS: normal to inspection Neuro: COMMON NORMALS: patient oriented x3 and CN's II-XII intact bilaterally Psych: COMMON NORMALS: mental status grossly normal, Normal thought process present and cooperative THOUGHT PROCESS: Normal thought process present Skin: NARRATIVE SKIN EXAM: There appears to be a diabetic ulcer at the base of the right great toe with surrounding erythema and swelling of the toe. Course Vital Signs: Vital signs: Vital Signs Temperature 98.1 F 05/01/25 22:42 Pulse Rate 114 H 05/01/25 22:42 Respiratory Rate 18 05/01/25 22:42 Blood Pressure 130/84 05/01/25 22:42 Pulse Oximetry 95 05/01/25 22:42 MDM - Extremity (Nontraumatic) Medical Decision Making Patient was placed on Keflex and Bactrim and given his first doses in the emergency department. Recommended he follow-up with his primary care physician in 1 week for recheck and ongoing management. He was discharged in stable condition. No radiology studies performed this visit Discharge Plan Discharge Patient Disposition: Home Clinical Impression: Diabetic foot ulcer Qualifiers: Diabetic foot ulcer location: toe Diabetes mellitus type: type 2 Laterality: right Non-pressure ulcer stage: limited to breakdown of skin Qualified Code(s): E11.621 - Type 2 diabetes mellitus with foot ulcer Condition: Stable Prescriptions: New cephalexin 500 mg capsule 500 mg PO QID 10 Days Qty: 40 0RF sulfamethoxazole-trimethoprim [Bactrim DS] 800-160 mg tablet 1 tab PO BID 10 Days Qty: 20 0RF No Action escitalopram oxalate [Lexapro] 10 mg tablet 10 mg PO DAILY Qty: 30 5RF rivaroxaban 20 mg tablet 20 mg PO DAILY Qty: 90 3RF Discharge Orders: Discharge ED (Routine); Ordered 05/02/25 Ordered By: Harris Brush Referrals: Randy Nichols DO [Primary Care Provider, Family Practice] Patient Instructions: Foot Ulcers in a Person with Diabetes (ED) Activity Restrictions/Additional Instructions: Follow-up with primary care provider in 1 week for recheck. Print Language: Luxembourgish Coding Level of Care Code ED Fire Management Specialist for Roque Salmon
[2025-05-02] MEDS: sulfamethoxazole-trimeth DS 160-800 mg Tablet 1 TAB PO (01:13)
[2025-05-02 01:17] VITALS: BP 113/74; PULSE 91; RESP 21; O2SAT 97
== END 2025-05-02 01:19 | disposition home or self-care (01) ==
PROVIDERS: Emergency Provider Emergency Medicine; PCP Family Medicine
DX: E11.621 Type 2 diabetes mellitus with foot ulcer (principal); L97.511 Non-pressure chronic ulcer of other part of right foot limited to breakdown of skin
CPT/HCPCS: 99283; J9999